=== PATIENT | female | born 1990 | race Caucasian/White ===

== ENCOUNTER → 2018-12-20 17:17 | Outpatient (CLI) | payer BC, SELFPAY | PROVIDERS: Visit Provider Nurse Practitioner Family | DX: N39.0 Urinary tract infection, site not specified (principal) | CPT/HCPCS: 87086 ==

== ENCOUNTER → 2018-12-21 09:38 | Outpatient (CLI) | payer BC, SELFPAY ==
[2018-12-21 11:51] LABS: Basophils % 0.2 % (0.1-2.0); Eosinophils # 0.2 K/mm3 (0.0-0.4); Eosinophils % 3.5 % (0.1-12.0); Hematocrit 38.4 % (37.0-47.0); Hemoglobin 11.9 g/dL (12.2-16.2); Lymphocytes # 1.5 K/mm3 (0.7-4.5); Lymphocytes % 31.1 % (10-50); Mean Corpuscular HGB Conc 31.1 g/dL (31.8-35.4); Mean Corpuscular Hemoglobin 27.1 pg (27.0-31.2); Mean Corpuscular Volume 87.2 fl (81-99); Mean Platelet Volume 8.1 fl (7.4-10.4); Monocytes # 0.2 K/mm3 (0.1-1.0); Monocytes % 5.1 % (1.7-9.3); Neutrophils # 2.9 K/mm3 (1.8-7.8); Neutrophils % 60.1 % (37.0-80.0); Platelet Count 270 K/mm3 (142-424); Red Blood Count 4.41 M/mm3 (4.20-5.40); Red Cell Distribution Width 15.2 % (11.5-17.5); White Blood Count 4.8 K/mm3 (4.8-10.8)
[2018-12-21 12:10] LABS: Alanine Aminotransferase 23 U/L (12-78); Albumin Level 3.8 gm/dL (3.4-5.0); Albumin/Globulin Ratio 1.2 (1.1-1.8); Alkaline Phosphatase 71 U/L (46-116); Anion Gap 14.3 mEq/L (5-15); Aspartate Amino Transferase 13 U/L (15-37); Bilirubin,Total 0.7 mg/dL (0.2-1.0); Blood Urea Nitrogen 16 mg/dL (7-18); Carbon Dioxide 29 mmol/L (21.0-32.0); Chloride 103 mmol/L (98-107); Chol/HDL Ratio 3.5 (1-3.5); Cholesterol 184 mg/dL (140-200); Creatinine,Serum 0.63 mg/dL (0.55-1.02); Estimated Glomerular Filt Rate 113 ml/min (>60); GFR (African American) 137 ML/MIN (>60); Globulin 3.2 gm/dl (1.3-3.2); Glucose 99 mg/dL (74-106); HDL Cholesterol 53 mg/dL (29-89); LDL Cholesterol 109 mg/dL (0-130); Potassium 4.3 mmoL/L (3.5-5.1); Sodium 142 mmol/L (136-145); T4 (Thyroxine) 7.6 ug/dl (4.7-13.3); Thyroid Stimulating Hormone 1.54 uIU/ml (0.358-3.740); Triglycerides 110 mg/dL (30-200); VLDL Cholesterol 22 mg/dL (0-40)
[2018-12-22 08:51] LABS: Hep A Ab, IgM Negative (Negative); Hepatitis B Core Antibody IgM Negative (Negative); Hepatitis B Surface Antigen Negative (Negative); Iron 40 ug/dL (27-159); Iron Saturation 10 % (15-55); UIBC 363 ug/dL (131-425)
[2018-12-22 17:11] LABS: Hepatitis C Antibody <0.1 s/co ratio (0.0-0.9); Vitamin D 25 Hydroxy 23.1 ng/mL (30.0-100.0)
== END ==
PROVIDERS: Visit Provider Nurse Practitioner Family
DX: R53.83 Other fatigue (principal); E04.9 Nontoxic goiter, unspecified; D64.9 Anemia, unspecified; E55.9 Vitamin D deficiency, unspecified; R74.0 Nonspecific elevation of levels of transaminase and lactic acid dehydrogenase [LDH]
CPT/HCPCS: 36415; 80053; 80061; 80074; 82652; 83540; 83550; 84436; 84443; 85025

== ENCOUNTER → 2018-12-29 10:12 | Outpatient (CLI) | payer BC, SELFPAY ==
--- NOTE | 2018-12-29 10:15 | US_ITS ---
US thyroid HISTORY: Enlarged thyroid gland, evaluate for nodules ITS.REASON: enlarged thy ORDERING PHYSICIAN: Melvin Alanis APRN PATIENT AGE: 28 years Comparison: None FINDINGS: Right lobe: 4.1 x 1.4 x 1.5 cm Left lobe: 4.2 x 1.3 x 1.8 cm Isthmus: Unremarkable There is bilateral homogeneous echogenicity of the thyroid gland. No nodules or other significant anomalies are evident. IMPRESSION: Thyroid gland upper limits of normal otherwise negative. No nodules apparent
== END ==
PROVIDERS: PCP Nurse Practitioner Family; Visit Provider Nurse Practitioner Family
DX: E04.9 Nontoxic goiter, unspecified (principal)
CPT/HCPCS: 76536

== ENCOUNTER → 2019-01-12 08:32 | Outpatient (CLI) | payer BC, SELFPAY | PROVIDERS: PCP Emergency Medicine; Visit Provider Nurse Practitioner Family | DX: G43.909 Migraine, unspecified, not intractable, without status migrainosus (principal); R01.1 Cardiac murmur, unspecified | CPT/HCPCS: 93306 ==

== ENCOUNTER → 2019-02-20 09:48 | Outpatient (CLI) | payer BC, SELFPAY ==
--- NOTE | 2019-02-20 09:52 | US_ITS ---
PROCEDURE: US TRANSVAGINAL CLINICAL INDICATION: us t/v-pelvic pain COMPARISON: No exams were available for comparison FINDINGS: UTERUS: Uterus is retroverted or retroflexed and measures 7.8 x 4.5 x 5.5 centimetres. Endometrial thickness is 7.8 millimeters. The uterus is otherwise empty. There is no cul-de-sac fluid. LEFT OVARY: 3.1 x 2.2 x 2.9 centimeters with normal RIGHT OVARY: Blood flow and multiple follicles. 3.3 x 1.8 x 2.5 centimeters with normal blood flow and multiple follicles. IMPRESSION: There are no adnexal lesions. Bilateral ovarian follicles. No acute process. Possible small nabothian cyst. Dictated by: Elian Rivera 02/20/2019 10:44 Electronically signed by Elian Rivera in [facility] 02/20/2019 10:44
== END ==
PROVIDERS: PCP Nurse Practitioner Family; Visit Provider Nurse Practitioner Obstetrics & Gynecology
DX: R10.2 Pelvic and perineal pain (principal)
CPT/HCPCS: 76830

== ENCOUNTER → 2019-02-26 09:50 | Outpatient (CLI) | payer BC, SELFPAY ==
[2019-02-26 11:24] LABS: Basophils % 0.4 % (0.1-2.0); Eosinophils # 0.2 K/mm3 (0.0-0.4); Eosinophils % 4.4 % (0.1-12.0); Hematocrit 39.2 % (37.0-47.0); Lymphocytes # 1.7 K/mm3 (0.7-4.5); Lymphocytes % 33.3 % (10-50); Mean Corpuscular HGB Conc 30.6 g/dL (31.8-35.4); Mean Corpuscular Hemoglobin 26.8 pg (27.0-31.2); Mean Corpuscular Volume 87.6 fl (81-99); Mean Platelet Volume 7.4 fl (7.4-10.4); Monocytes # 0.3 K/mm3 (0.1-1.0); Monocytes % 6.5 % (1.7-9.3); Neutrophils # 2.8 K/mm3 (1.8-7.8); Neutrophils % 55.3 % (37.0-80.0); Platelet Count 277 K/mm3 (142-424); Red Blood Count 4.48 M/mm3 (4.20-5.40); Red Cell Distribution Width 15.2 % (11.5-17.5); White Blood Count 5.1 K/mm3 (4.8-10.8)
[2019-02-26 11:54] LABS: HCG Qualitative, Serum Negative (Negative)
[2019-02-26 13:00] LABS: Alanine Aminotransferase 20 U/L (12-78); Albumin/Globulin Ratio 1.3 (1.1-1.8); Alkaline Phosphatase 67 U/L (46-116); Anion Gap 12.7 mEq/L (5-15); Aspartate Amino Transferase 18 U/L (15-37); Bilirubin,Total 0.8 mg/dL (0.2-1.0); Blood Urea Nitrogen 15 mg/dL (7-18); Calcium 9.2 mg/dL (8.5-10.1); Carbon Dioxide 29 mmol/L (21.0-32.0); Chloride 104 mmol/L (98-107); Estimated Glomerular Filt Rate 148 ml/min (>60); GFR (African American) 179 ML/MIN (>60); Globulin 3.1 gm/dl (1.3-3.2); Glucose 90 mg/dL (74-106); Potassium 4.7 mmoL/L (3.5-5.1); Sodium 141 mmol/L (136-145); Total Protein,Serum 7.1 gm/dL (6.4-8.2)
== END ==
PROVIDERS: Visit Provider Nurse Practitioner Obstetrics & Gynecology
DX: Z01.818 Encounter for other preprocedural examination (principal); R10.2 Pelvic and perineal pain; N92.1 Excessive and frequent menstruation with irregular cycle; N92.6 Irregular menstruation, unspecified
CPT/HCPCS: 36415; 80053; 84703; 85025

== ENCOUNTER → 2019-11-08 14:31 | Outpatient (CLI) | payer BC, SELFPAY ==
[2019-11-08 14:52] LABS: Basophils % 0.4 % (0.1-2.0); Eosinophils # 0.3 K/mm3 (0.0-0.4); Eosinophils % 6.9 % (0.1-12.0); Hematocrit 39.3 % (37.0-47.0); Hemoglobin 13.5 g/dL (12.2-16.2); Lymphocytes # 1.7 K/mm3 (0.7-4.5); Lymphocytes % 33.7 % (10-50); Mean Corpuscular HGB Conc 34.3 g/dL (31.8-35.4); Mean Corpuscular Hemoglobin 30.3 pg (27.0-31.2); Mean Corpuscular Volume 88.3 fl (81-99); Monocytes # 0.3 K/mm3 (0.1-1.0); Monocytes % 5.7 % (1.7-9.3); Neutrophils # 2.7 K/mm3 (1.8-7.8); Neutrophils % 53.4 % (37.0-80.0); Platelet Count 246 K/mm3 (142-424); Red Blood Count 4.45 M/mm3 (4.20-5.40); Red Cell Distribution Width 13.5 % (11.5-17.5)
[2019-11-08 16:08] LABS: Alanine Aminotransferase 21 U/L (12-78); Albumin/Globulin Ratio 1.8 (1.1-1.8); Alkaline Phosphatase 60 U/L (38-126); Anion Gap 13.8 mEq/L (5-15); Aspartate Amino Transferase 33 U/L (14-36); Bilirubin,Total 0.7 mg/dl (0.2-1.3); Blood Urea Nitrogen 12 mg/dl (7-17); Carbon Dioxide 29 mmol/L (22.0-30.0); Chloride 100 mmol/L (98-107); Chol/HDL Ratio 3.3 (1-3.5); Cholesterol 212 mg/dl (140-200); Estimated Glomerular Filt Rate 119 ml/min (>60); GFR (African American) 144 ML/MIN (>60); Globulin 2.8 g/dL (1.3-3.2); Glucose 119 mg/dl (74-100); HDL Cholesterol 64 mg/dl (40-60); Potassium 4.8 mmoL/L (3.5-5.1); Sodium 138 mmol/L (136-145); Total Protein,Serum 7.8 g/dl (6.3-8.2); Triglycerides 165 mg/dl (30-150); VLDL Cholesterol 33 mg/dL (0-40)
[2019-11-08 16:20] LABS: Direct LDL Cholesterol 130.41 mg/dL (100-129)
[2019-11-08 16:26] LABS: T4 (Thyroxine) 10.6 ug/dl (5.53-11.0)
[2019-11-08 16:40] LABS: Thyroid Stimulating Hormone 1.19 uIU/mL (0.465-4.68)
[2019-11-15 01:39] LABS: 1,25 Dihydroxy Vitamin D 34 pg/mL (.); 1,25-Dihydroxy, Vitamin D-2 <10 pg/mL (.); 1,25-Dihydroxy, Vitamin D-3 34 pg/mL (.)
== END ==
PROVIDERS: Visit Provider Nurse Practitioner Family
DX: Z00.00 Encounter for general adult medical examination without abnormal findings (principal); R51 Headache; G44.89 Other headache syndrome; E04.9 Nontoxic goiter, unspecified
CPT/HCPCS: 80053; 80061; 82652; 84436; 84443; 85025

== ENCOUNTER → 2019-11-09 08:07 | Outpatient (CLI) | payer BC, SELFPAY ==
[2019-11-09 10:53] LABS: Hemoglobin A1C 5.2 % (4.0-6.0)
[2019-11-10 12:25] LABS: C-Peptide 4.2 ng/mL (1.1-4.4)
== END ==
PROVIDERS: Visit Provider Nurse Practitioner Family
DX: R73.09 Other abnormal glucose (principal)
CPT/HCPCS: 36415; 83036; 84681

== ENCOUNTER → 2019-11-21 15:07 | Outpatient (CLI) | payer BC, SELFPAY ==
--- NOTE | 2019-11-21 15:14 | CT_ITS ---
PROCEDURE: CT HEAD/BRAIN WO CON CLINICAL INDICATION: headaces COMPARISON: No exams were available for comparison TECHNIQUE: Axial images obtained. All CT scans at the facility use one or more dose reduction, viz: automated exposure control, ma/kV adjustment per patient size (including targeted exams where dose is matched to indication, i.e. head), or iterative reconstruction technique. FINDINGS: No midline shift, mass effect, intracranial hemorrhage, hydrocephalus, or extra-axial fluid collection is evident. The calvarium has an unremarkable appearance. There is some mucosal thickening of the sphenoid sinus on the left posteriorly IMPRESSION: No acute intracranial finding Mild left sphenoid sinus disease Dictated by: Kev Perkins MD 11/21/2019 16:52 Electronically signed by Kev Perkins MD in [facility] 11/21/2019 16:52
== END ==
PROVIDERS: PCP Emergency Medicine; Visit Provider Nurse Practitioner Family
DX: R51 Headache (principal)
CPT/HCPCS: 70450

== ENCOUNTER → 2019-12-10 12:38 | Outpatient (CLI) | payer BC, SELFPAY ==
--- NOTE | 2019-12-10 12:38 | US_ITS ---
PROCEDURE: US THYROID CLINICAL INDICATION: enalrgement COMPARISON: THY US thyroid from 12/29/2018 FINDINGS: Right lobe: Right lobe is 4.1 x 1.2 x 1.7 cm with homogeneous echogenicity. A 2 mm cyst is present in the mid aspect of the right lobe Left lobe: 4.1 x 1.4 x 1.5 cm with homogeneous echogenicity Isthmus: Unremarkable Additional findings: IMPRESSION: Mildly enlarged thyroid gland with small cyst on the right. No suspicious nodules evident Dictated by: Kev Perkins MD 12/10/2019 14:02 Electronically signed by Kev Perkins MD in [facility] 12/10/2019 14:02
== END ==
PROVIDERS: PCP Emergency Medicine; Visit Provider Otolaryngology
DX: E01.0 Iodine-deficiency related diffuse (endemic) goiter (principal)
CPT/HCPCS: 76536

== ENCOUNTER → 2019-12-26 13:14 | Outpatient (CLI) | payer BC, SELFPAY | PROVIDERS: PCP Nurse Practitioner Family; Visit Provider Nurse Practitioner Family | DX: G47.00 Insomnia, unspecified (principal) | CPT/HCPCS: G0399 ==

== ENCOUNTER → 2020-02-04 16:05 | Outpatient (CLI) | payer BC, SELFPAY ==
--- NOTE | 2020-02-04 16:10 | CT_ITS ---
PROCEDURE: CT ABDOMEN PELVIS WO CON CLINICAL INDICATION: STONE PROTOCOL, L FLANK PAIN, NAUSEA COMPARISON: CT ABDPELWO CT abdomen pelvis wo con from 01/30/2018 TECHNIQUE: Axial images obtained with sagittal and coronal reformats. All CT scans at the facility use one or more dose reduction, viz: automated exposure control, ma/kV adjustment per patient size (including targeted exams where dose is matched to indication, i.e. head), or iterative reconstruction technique. FINDINGS: LOWER THORAX: Is a 15 mm noncalcified nodule in the right lower lobe. The borders of this nodule are more circumscribed on today's exam than when compared to 01/30/2018. ABDOMEN & PELVIS: The liver, gallbladder, spleen, adrenal glands, and pancreas have an unremarkable appearance. There is a 3 mm nonobstructing stone in the lower pole of the right kidney. A 2 mm stone is present in the upper pole of the right kidney. The left kidney has an unremarkable appearance. No renal or ureteral calculi are evident. There is a small amount of fluid in the cul-de-sac. Unremarkable appendix. No intestinal obstruction or free air. Urinary bladder wall slightly thickened. There is a circular area of increased density within the peritoneal fat lateral to the junction of the descending and sigmoid colon in the left lower quadrant consistent with an area of epiploic appendagitis. There is no evidence diverticulitis. There is a small umbilical hernia containing fat. No acute bony findings are evident. IMPRESSION: 1. Ring-like area of increased density at 1.3 cm in diameter in the peritoneal fat in the left lower quadrant consistent with epiploic appendagitis 2. Right nephrolithiasis. 3. No obstructing ureteral calculi evident 4. 15 mm noncalcified nodule of the right lower lobe. The nodule is better circumscribed but not significantly changed in size compared to 01/30/2018. Continued follow-up suggested to confirm stability. Dictated by: Kev Perkins MD 02/04/2020 16:59 Kev Perkins MD in [facility] 02/04/2020 16:59
== END ==
PROVIDERS: PCP Internal Medicine; Visit Provider Internal Medicine
DX: N20.0 Calculus of kidney (principal); R11.0 Nausea; R10.12 Left upper quadrant pain
CPT/HCPCS: 74176

== ENCOUNTER → 2020-02-21 10:13 | Outpatient (CLI) | payer BC, SELFPAY ==
--- NOTE | 2020-02-21 10:17 | CT_ITS ---
Procedure: CT ABDOMEN PELVIS W CON Referring Doctor: Geo Leiva Patient Age:29Y CLINICAL INDICATION: Abdominal pain. Follow-up EIPLOIC APPENDAGITIS 3 weeks. Continued LLQ pain 2 COMPARISON: CT ABDPELWO CT abdomen pelvis wo con from 01/30/[address] ABDOMEN PELVIS WO CON from 02/04/2020 TECHNIQUE: 75 cc Isovue 350 IV contrast utilized Oral enteric contrast also used of 4 today's scan Helical axial images obtained with sagittal and coronal reformats. All CT scans at the facility use one or more dose reduction, viz: automated exposure control, ma/kV adjustment per patient size (including targeted exams where dose is matched to indication, i.e. head), or iterative reconstruction technique. FINDINGS: Lower thorax: 16 mm noncalcified lung nodule at the posterior right lung base. Again noted. I see that this nodule with initially seen and January 2018 now with better defined appearance supporting longstanding-I would suggest a follow-up CXR in two-view 3--4 months to additionally confirm stability (and the presuming the patient has no other significant underlying pathology) ABDOMEN: Liver: No masses or biliary dilatation. Gallbladder: Nondistended. No radio opaque stones. Pancreas: No masses or peripancreatic fluid collections. Spleen: Normal-2upper normal size Adrenals: unremarkable Kidneys/. No urinary tract obstruction. A small 2.5 mm nonobstructive calculus towards the lower pole of right kidney coronal slice 43. Stable ureters unremarkable no calculi nor obstruction. Urinary bladder satisfactory. PELVIS: No free fluid pelvis Retroverted uterus appears normal size but. Ovaries appear normal size with of what appear to be numerous small follicles throughout each. The left ovary is larger measuring to 3.6 cm maximally Bladder: Nondistended. No obvious stones or masses. Appendix: Unremarkable. No distention or periappendiceal phlegmonous change. GI tract The area of a suspect epiploic appendagitis is again noted. With less inflammation surrounding this epiploic focus. The adjacent sigmoid colon appears normal. There is no wall thickening and large or small bowel. There is normal progression of contrast through the small bowel into the colon. Normal appearing terminal ileum, small bowel, normal appendix. . No bowel dilatation Peritoneum: No abnormal fluid collections.... No free air. Lymph nodes: No significant enlarged nodes. Only some tiny scattered small nodes in the mesentery and towards RLQ.-Unimpressive and unchanged but noted Vasculature: No evidence of abdominal aortic aneurysm. No retroperitoneal hemorrhage evident. Bones: No acute fracture IMPRESSION: 1. Regression of the inflammation associated with epiploic appendagitis left lower quadrant. There is still some scant inflammation here but has significantly improved since 02/04/2020. No associated bowel findings otherwise 2.. Again note the 16 mm lung lesion right lung base. Apparent benign feature initially seen in 2018. However would suggest follow-up CXR in-3-4 months.. 3.. Again note 2.5 mm nonobstructive calculus lower pole calyx right kidney . A ovaries normal in size with numerous follicles bilaterally . Dictated by: Duke Medina MD 02/21/2020 12:13 Duke Medina MD in [facility] 02/21/2020 12:13
== END ==
PROVIDERS: PCP Internal Medicine; Visit Provider Surgery
DX: K63.89 Other specified diseases of intestine (principal)
CPT/HCPCS: 74177; Q9967

== ENCOUNTER 2020-03-13 14:49 | Emergency (ER) | payer BC, SELFPAY ==
[2020-03-13 14:50] VITALS: BP 163/85; PULSE 96; RESP 16; TEMP 36.8; O2SAT 98; BMI 27.4
--- NOTE | 2020-03-13 15:20 | US_ITS ---
PROCEDURE: US TRANSVAGINAL CLINICAL INDICATION: pain, bleeding COMPARISON: US US TRANSVAGINAL from 02/20/2019 FINDINGS: The uterus is retroverted with heterogeneous echogenicity of the uterine fundal area. Endometrium is upper normal at 1 cm. There is a small cystic area within the endometrial lining measuring 6 mm. The left ovary is 3 x 2 cm. Blood flow is present. The right ovary is 4 x 2 cm. There is a partially collapsed cyst within the right ovary. Blood flow is present. No cul-de-sac fluid is evident. IMPRESSION: Retroverted uterus with coarse echogenicity in the fundal area possibly related to endometrial adenomyosis.. This may be confirmed with MRI if clinically desired. Nonspecific small cystic area within the endometrium Dictated by: Kev Perkins MD 03/14/2020 07:00 Kev Perkins MD in [facility] 03/14/2020 07:00
[2020-03-13 15:40] LABS: Microscopic, Urine URINE MICROSCOPIC (MICROSCOPIC)
[2020-03-13 15:42] LABS: Appearance,Urine CLEAR (Clear); Bilirubin,Urine Negative (Negative); Blood, Urine Negative (Negative); Color,Urine YELLOW (Yellow); Glucose,Urine (UA) Negative (Negative); Ketones,Urine Negative (Negative); Leukocyte Esterase,Urine Negative (Negative); Nitrate,Urine Negative (Negative); Protein,Urine Negative (Negative); Urobilinogen,Urine 0.2 EU/dl (0.2)
[2020-03-13 15:45] LABS: Urine Pregnancy, HCG Qual. Negative (Negative)
--- NOTE | 2020-03-13 15:46 | HMH.EDUROGF ---
ED Disposition Clinical Impression: Dysfunctional uterine bleeding Disposition: Home, Self-Care Condition on Discharge: Good Instructions: DI for Vaginal Bleeding Referrals: Melvin Alanis APRN [Primary Care Provider] - - Critical Care Critical Care Time: No Attestation: On 03/13/20, the high probability of a clinically significant, sudden or life threatening deterioration of the following system(s) required my full and direct attention, intervention and personal management. The time I documented below is in addition to time spent performing reported procedures but includes the following listed in this critical care notation. Medical Decision Making - Medical Records Medical records reviewed: Yes: I reviewed the patient's medical records. - Benito Inquiry Pt receiving controlled substance: No Vital Signs: 03/13/20 14:50 03/13/20 16:18 Temperature 98.3 F Temperature Source Oral Pulse Rate [Left Radial] 96 H 81 Respiratory Rate 16 Blood Pressure [Right Arm] 163/85 H 140/88 Blood Pressure Mean [Right Arm] 111 105 Blood Pressure Source [Right Arm] Automatic Cuff Blood Pressure Position [Right Arm] Sitting Sitting 02 Sat by Pulse Oximetry 98 99 Oxygen Delivery Method Room Air Room Air - Lab Data Lab Results 03/13/20 15:10: Urine Color Yellow, Urine Appearance Clear, Urine pH 7.0, Ur Specific [place] 1.020, Urine Protein Negative, Urine Glucose (UA) Negative, Urine Ketones Negative, Urine Blood Negative, Urine Nitrate Negative, Urine Bilirubin Negative, Urine Urobilinogen 0.2, Ur Leukocyte Esterase Negative, Urine RBC Occasional, Urine WBC Occasional, Ur Squamous Epith Cells Occasional, Urine Bacteria None, Urine Mucus Trace 03/13/20 15:10: Urine HCG, Qual Negative 03/13/20 15:48: WBC 8.5, RBC 4.54, Hgb 13.1, Hct 41.1, MCV 90.6, MCH 28.8, MCHC 31.8, RDW 14.0, Plt Count 274, MPV 7.5, Neut % (Auto) 70.8, Lymph % (Auto) 20.9, Cameron % (Auto) 4.7, Eos % (Auto) 3.0, Baso % (Auto) 0.6, Neut # (Auto) 6.0, Lymph # (Auto) 1.8, Cameron # (Auto) 0.4, Eos # (Auto) 0.3, Baso # (Auto) 0.1 03/13/20 15:48: Sodium 138, Potassium 4.1, Chloride 101, Carbon Dioxide 29, Anion Gap 12.1, BUN 9, Creatinine 0.60, Estimated Creat Clear 170, Estimated GFR 119, Est GFR ( Amer) 144, Glucose 106 H, Calcium 9.7, Total Bilirubin 0.5, AST 26, ALT 19, Alkaline Phosphatase 61, Total Protein 7.6, Albumin 4.7, Globulin 2.9, Albumin/Globulin Ratio 1.6, Lipase 70 Result diagrams: 03/13/20 15:48 03/13/20 15:48 Orders (Tests/Meds): ORDERS Category Date Time Status US transvaginal Stat Exams 03/13/20 15:20 Taken - US Data US Images: Pelvis ED US Reviewed: Yes: I have reviewed the patient's US results, I have viewed radiologist's interpretation Findings Narrative: Ovarian cyst, no torsion. Cyst and endometrium. Thickened endometrium. - Reevaluation(s) Time: 17:04 Reevaluation #1: On reevaluation, patient is feeling much better. She has had no further bleeding. No syncope. Hemodynamically stable. Hemoglobin is stable. I do believe the patient's bleeding is likely secondary to thickened endometrium. 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 Given strict return precautions. Verbalized understanding. Medical Decision Narrative: 29-year-old female presented to the emergency department with vaginal bleeding. Do believe her symptoms are consistent with endometriosis. However ultrasound will be obtained to evaluate for torsion versus other ovarian pathology. Patient has no neurologic deficits. I do believe that her paresthesias in the arm could be secondary to her blood loss. Work-up will be initiated. Female Urogenital HPI - General Chief complaint: Vaginal Bleeding Stated complaint: bleeding, rt arm numbness, dizzy Time Seen by Provider: 03/13/20 14:55 Mode of Arrival: Ambulatory Limitations: No Limitations Description of Symptoms (Recalled from ER Triage Doc. by RN): TO ED PER PVT CAR PT STATES SHE STOOD
[2020-03-13 15:50] LABS: Mucus,Urine Trace /lpf; RBC,Urine Occasional #/hpf (0-3); Squamous Epithelial Cell,Urine Occasional #/hpf (0-5); WBC,Urine Occasional #/hpf (0-3)
[2020-03-13 15:59] LABS: Basophils # 0.1 K/mm3 (0-0.2); Basophils % 0.6 % (0.1-2.0); Eosinophils # 0.3 K/mm3 (0.0-0.4); Hematocrit 41.1 % (37.0-47.0); Hemoglobin 13.1 g/dL (12.2-16.2); Lymphocytes # 1.8 K/mm3 (0.7-4.5); Lymphocytes % 20.9 % (10-50); Mean Corpuscular HGB Conc 31.8 g/dL (31.8-35.4); Mean Corpuscular Hemoglobin 28.8 pg (27.0-31.2); Mean Corpuscular Volume 90.6 fl (81-99); Mean Platelet Volume 7.5 fl (7.4-10.4); Monocytes # 0.4 K/mm3 (0.1-1.0); Monocytes % 4.7 % (1.7-9.3); Neutrophils % 70.8 % (37.0-80.0); Platelet Count 274 K/mm3 (142-424); Red Blood Count 4.54 M/mm3 (4.20-5.40); White Blood Count 8.5 K/mm3 (4.8-10.8)
[2020-03-13 16:00] LABS: Chloride 101 mmol/L (98-107); Potassium 4.1 mmoL/L (3.5-5.1); Sodium 138 mmol/L (136-145)
[2020-03-13 16:03] LABS: Alanine Aminotransferase 19 U/L (12-78); Albumin Level 4.7 g/dl (3.5-5.0); Albumin/Globulin Ratio 1.6 (1.1-1.8); Alkaline Phosphatase 61 U/L (38-126); Anion Gap 12.1 mEq/L (5-15); Aspartate Amino Transferase 26 U/L (14-36); Bilirubin,Total 0.5 mg/dl (0.2-1.3); Blood Urea Nitrogen 9 mg/dl (7-17); Calcium 9.7 mg/dl (8.4-10.2); Carbon Dioxide 29 mmol/L (22.0-30.0); Creatinine Clearance Estimated 170 mL/min (50-200); Estimated Glomerular Filt Rate 119 ml/min (>60); GFR (African American) 144 ML/MIN (>60); Globulin 2.9 g/dL (1.3-3.2); Glucose 106 mg/dl (74-100); Lipase 70 U/L (23-300); Total Protein,Serum 7.6 g/dl (6.3-8.2)
[2020-03-13 16:18] VITALS: BP 140/88; PULSE 81; O2SAT 99
[2020-03-13 17:44] VITALS: BP 120/70; PULSE 81; RESP 17; TEMP 36.6; O2SAT 96
== END 2020-03-13 17:45 | disposition home or self-care (01) ==
PROVIDERS: Emergency Provider Emergency Medicine; PCP Nurse Practitioner Family
DX: N93.8 Other specified abnormal uterine and vaginal bleeding (principal); N83.201 Unspecified ovarian cyst, right side; G43.709 Chronic migraine without aura, not intractable, without status migrainosus; F33.1 Major depressive disorder, recurrent, moderate
CPT/HCPCS: 76830; 80053; 81001; 81025; 83690; 85025; 99283

== ENCOUNTER → 2020-03-24 09:14 | Outpatient (CLI) | payer BC, SELFPAY ==
[2020-03-24 09:46] LABS: Basophils % 0.3 % (0.1-2.0); Eosinophils # 0.2 K/mm3 (0.0-0.4); Eosinophils % 3.5 % (0.1-12.0); Hematocrit 39.6 % (37.0-47.0); Hemoglobin 13.3 g/dL (12.2-16.2); Lymphocytes # 1.7 K/mm3 (0.7-4.5); Lymphocytes % 29.9 % (10-50); Mean Corpuscular HGB Conc 33.6 g/dL (31.8-35.4); Mean Corpuscular Hemoglobin 29.9 pg (27.0-31.2); Mean Platelet Volume 7.4 fl (7.4-10.4); Monocytes # 0.3 K/mm3 (0.1-1.0); Monocytes % 5.2 % (1.7-9.3); Neutrophils # 3.5 K/mm3 (1.8-7.8); Neutrophils % 61.1 % (37.0-80.0); Platelet Count 277 K/mm3 (142-424); Red Blood Count 4.45 M/mm3 (4.20-5.40); Red Cell Distribution Width 14.2 % (11.5-17.5); White Blood Count 5.8 K/mm3 (4.8-10.8)
[2020-03-24 10:00] LABS: Chloride 103 mmol/L (98-107)
[2020-03-24 10:01] LABS: Potassium 4.2 mmoL/L (3.5-5.1); Sodium 139 mmol/L (136-145)
[2020-03-24 10:04] LABS: Anion Gap 12.2 mEq/L (5-15); Blood Urea Nitrogen 12 mg/dl (7-17); Calcium 9.8 mg/dl (8.4-10.2); Carbon Dioxide 28 mmol/L (22.0-30.0); Estimated Glomerular Filt Rate 119 ml/min (>60); GFR (African American) 144 ML/MIN (>60); Glucose 103 mg/dl (74-100)
[2020-03-24 10:09] LABS: HCG Qualitative, Serum Negative (Negative)
[2020-03-24 10:35] LABS: Coronavirus 19 IgG Antibody Negative (Negative); Coronavirus 19 IgM Antibody Negative (Negative)
== END ==
PROVIDERS: Visit Provider Nurse Practitioner Obstetrics & Gynecology
DX: Z01.818 Encounter for other preprocedural examination (principal); N93.8 Other specified abnormal uterine and vaginal bleeding
CPT/HCPCS: 36415; 80048; 84703; 85025; 86328

== ENCOUNTER 2020-03-26 06:08 | Day surgery (SDC) | payer BC, SELFPAY ==
[2020-03-24 08:15] VITALS: BMI 25.8
[2020-03-26] VITALS (13 sets, daily range): BP systolic 115–154; BP diastolic 67–86; PULSE 62–85; RESP 16–19; TEMP 36.2–36.9; O2SAT 94–100
--- NOTE | 2020-03-26 07:02 | P.PN_ITS ---
[facility] Anesthesia Checklist - Patient Identification Patient Identification: Arm Band, Verbal (Name & ) - Structural Data Admitted From: Home Planned Operative Procedure/s: Diagnostic laparoscopy, resection of endometriosis Consent for Planned Operative Procedure(s) Verified: Yes Verified Documents: Surgical Consent, History and Physical - NPO Status Verified Time NPO: 21:00 - Chart Verification Results Verified: CBC, BMP, UA, HCG - Additional verifications Patient : No Anesthesia Reactions: No Hx Blood Transfusions: No Blood Transfusion Reaction: No - Airway Assessment C-Spine Mobility Assessed: Yes (MP 2, TMD 3, full neck ROM) TMJ Mobility Assessed: Yes Dentition: Good Dentition - Neurological Assessment Level of Consciousness: Awake, Alert, Appropriate, Follows Commands Hx Seizures: No Numbness or tingling in extremities: No - Anesthesia Plan Anesthesia Risk discussed: Yes Anesthesia Plan: Verified ASA Class: II Anesthesia Type: General [facility] History I have reviewed the patient's past medical history: Yes Medical History: Reports:: Heart Murmur, Migraine Denies:: Anxiety, Cancer, Diabetes Mellitus Type 1, Diabetes Mellitus Type 2, Hyperlipidemia, Hypertension, Internal Pacemaker, MRSA, Seizures *Have you ever received a pneumonia vaccine?: No *Have you received a flu vaccine this season?: No Other Medical History: Reports: Thyroid Disease. Denies: Blood Transfusion Reaction Anesthesia experience/problems:: No prior complications Other Surgeries: Yes: Tubal Ligation, Other. No: Pacemaker Amputation: No Fractures: Yes (wrist) - *Social History Last grade of school completed: Some college Smoking Status: Never smoker Alcohol Intake: never Substance Use Type: denies use *Occupational Status:: student Housing: house Household Members: spouse *Travel in the last 8 weeks: None - Psychiatric History Pschychiatric History:: Reports:: Depression Denies:: Anxiety Family Hx:: Kidney Disease, Coronary Artery Disease [employer] history: Tubal Ligation
--- NOTE | 2020-03-26 08:28 | HMH.OPNOTE ---
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 She had severe left lower quadrant pain. She had a couple of CTs that showed what appeared to be appendagitis of the epiploica of the descending colon. Otherwise the CT was normal. Since she had persistent left lower quadrant pain we elected perform a diagnostic laparoscopy. Operative findings:: She had an infarcted epiploica on the descending colon just below the level of the umbilicus on the left side. She had what appeared to be small powder cano of endometriosis on the distal end of the mesosalpinx. She also had what appeared to be endometriosis along the middle aspect of the mesosalpinx on the left side as well as small powder cano at the uterine cornua on the left. There was a large Masters Kev defect above the uterosacral ligament in the deep pelvis on the right side. There were a couple of smaller lesions with a small cystic at the end of adhesions on the right side. One was attached to the posterior uterus with a thin adhesion and a second 1 was attached to the right ovary. These were removed. The rest of the pelvis appeared normal. The upper abdomen appeared normal. We observed the appendix and it appeared normal as well. Both ovaries appeared normal. There is no evidence of endometriosis on the ovaries or in the ovarian fossae bilaterally. Operative note:: She was taken the operating room where the general anesthesia was found be adequate. She was prepped and draped in normal sterile fashion in the semilithotomy position. An acorn retractor was placed within the cervical canal and held in place with a tenaculum. I then changed gloves and injected 10 cc of 0.25% ropivacaine around the umbilicus. I made a small incision within the umbilicus and inserted a Veress needle into the abdominal cavity. The abdominal cavity was then insufflated with carbon dioxide gas to a pressure of 20 mmHg. I then inserted a 5 mm trocar superior to the pubic hairline under direct vision after injecting through and through and making a small incision. The findings were as previously dictated. I then injected through and through in the left lower quadrant lateral to the inferior epigastric arteries and inserted a 5 mm trocar here under direct vision. Using harmonic scalpel I was able to resect the areas at the distal mesosalpinx, from the medial aspect of the mesosalpinx and up at the cornua of the uterus on the left side. I then remove the small adhesions on the posterior uterus and posterior right ovary. These were small long adhesions and at the distal end of each adhesion was a small 2 to 3 mm cystic structure. These were sent to pathology. I then further inspected the pelvis. I then looked up along the left side of the descending colon and I could see a small bleb of tissue that appeared to be erythematous and firm consistent with an infarcted epiploica. I was able to just bluntly dissect this off from the colon. I grasped this and then placed it in the deep pelvis. I then removed the 5 mm trocar at the umbilicus and placed an 11 mm trocar under direct vision. I placed the camera in the suprapubic port and an Endo Catch bag through the 11 mm port. I then placed a small epiploica within the Endo Catch bag and removed this through the 11 mm port. I then further inspected the pelvis and was found to be completely dry. Along the descending colon there was a small amount of bleeding and ooze from the infarcted epiploica bed. I just placed a large piece of Surgicel o
--- NOTE | 2020-03-26 08:35 | HMH.ANESI ---
[facility] Anesthesia Record Part I Intake, IV Amount: 900 Estimated blood loss (mL): 25 Urine output (mL): 0 Blood Pressure: 126/77 SaO2: 98 Pulse Rate: 62 Respiratory Rate: 16 Temperature: 97.6 F Patient is:: Drowsy, Stable Stable to PACU at:: 08:30
--- NOTE | 2020-03-26 10:10 | P.PN_ITS ---
[facility] Anesthesia Record Part II Discharge Time: 09:08 Destination: Surgical Day Care (OP Surgery) PACU nurse assessment reviewed?: Yes Patient Condition:: Good Anesthesia Complications:: None Swallowing reflex intact?: Yes Cyanosis?: No Blood Pressure: 120/78 Pulse Rate: 68 Temperature: 97.7 F Mental Status: Alert & Oriented Pain level:: 4 Nausea and/or vomitting:: None Intake, IV Amount: 0
== END 2020-03-26 10:01 | disposition home or self-care (01) ==
LOC: OR 06:09
PROVIDERS: PCP Internal Medicine; Visit Provider Nurse Practitioner Obstetrics & Gynecology
PROC: (CPT 49320; principal; 2020-03-26 07:30)
DX: K63.89 Other specified diseases of intestine (principal); N80.0 Endometriosis of uterus; N80.8 Other endometriosis; N73.6 Female pelvic peritoneal adhesions (postinfective); N83.8 Other noninflammatory disorders of ovary, fallopian tube and broad ligament; G43.909 Migraine, unspecified, not intractable, without status migrainosus; R01.1 Cardiac murmur, unspecified; E07.9 Disorder of thyroid, unspecified; F32.9 Major depressive disorder, single episode, unspecified; Z88.6 Allergy status to analgesic agent; Z79.899 Other long term (current) drug therapy
CPT/HCPCS: 58662; 49321; 96374; J2405; J2710

== ENCOUNTER 2020-08-18 06:28 | Emergency (ER) | payer MEDICAID, SELFPAY ==
[2020-08-18] VITALS (8 sets, daily range): BP systolic 104–135; BP diastolic 47–78; PULSE 57–78; RESP 15–16; TEMP 36.6; O2SAT 92–100; BMI 26.4
--- NOTE | 2020-08-18 06:59 | CT_ITS ---
PROCEDURE: CT ABDOMEN PELVIS W CON CLINICAL INDICATION: right flank/right side abd pain COMPARISON: CT ABDPELWO CT abdomen pelvis wo con from 01/30/[address] ABDOMEN PELVIS WO CON from 02/04/2020 TECHNIQUE: IV Contrast: February 21, 2020. Oral Contrast None Axial images obtained with sagittal and coronal reformats. All CT scans at the facility use one or more dose reduction, viz: automated exposure control, ma/kV adjustment per patient size (including targeted exams where dose is matched to indication, i.e. head), or iterative reconstruction technique. FINDINGS: LOWER THORAX: There is a focal nodular appearing density noted in the right lower lobe measuring 1.6 x 1.5 centimeters, noted on prior studies dating back to January 30, 2018. No significant interval change compared to prior study. No other focal lung lesions. ABDOMEN & PELVIS: There is moderate right-sided hydronephrosis and hydroureter through its entire extent. There is a right vesicoureteric junction calculus measuring 6 millimeters. There is minor right periuterine trach and perinephric stranding noted. Nonobstructing right renal calculus at the inferior pole measuring 3 millimeters. The left kidney and left ureter are unremarkable. The liver, spleen, adrenal glands, and pancreas are unremarkable. No intra or extrahepatic biliary dilation. The visualized abdominal aorta and its branches are unremarkable. Pelvic structures are unremarkable. The gallbladder is normal. No intra or extrahepatic biliary dilation. Visualized large and small bowel loops demonstrate no focal wall thickening, obstruction or adjacent inflammatory changes. No free fluid or free intraperitoneal air. Visualized osseous structures are unremarkable. IMPRESSION: 6 millimeter right vesicoureteric junction calculus causes mild to moderate proximal hydroureter and hydronephrosis. Nonobstructing 3 millimeter calculus in the right kidney. Focal nodule in the right lower lobe measuring 1.6 x 1.5 centimeters, noted on the prior studies dating back to January 30, 2018. Follow-up as clinically indicated. Dictated by: Trice Daugherty 08/18/2020 09:34 Trice Daugherty in [facility] 08/18/2020 09:34
[2020-08-18 07:08] LABS: Microscopic, Urine URINE MICROSCOPIC (MICROSCOPIC)
[2020-08-18 07:13] LABS: Basophils % 0.5 % (0.1-2.0); Eosinophils # 0.2 K/mm3 (0.0-0.4); Eosinophils % 2.9 % (0.1-12.0); Hematocrit 38.5 % (37.0-47.0); Hemoglobin 12.9 g/dL (12.2-16.2); Lymphocytes # 1.6 K/mm3 (0.7-4.5); Mean Corpuscular HGB Conc 33.5 g/dL (31.8-35.4); Mean Corpuscular Hemoglobin 29.5 pg (27.0-31.2); Mean Platelet Volume 7.8 fl (7.4-10.4); Monocytes # 0.3 K/mm3 (0.1-1.0); Monocytes % 5.4 % (1.7-9.3); Neutrophils # 4.1 K/mm3 (1.8-7.8); Neutrophils % 65.2 % (37.0-80.0); Platelet Count 249 K/mm3 (142-424); Red Blood Count 4.37 M/mm3 (4.20-5.40); Red Cell Distribution Width 13.9 % (11.5-17.5); White Blood Count 6.3 K/mm3 (4.8-10.8)
[2020-08-18 07:13] LABS: Appearance,Urine CLEAR (Clear); Bilirubin,Urine Negative (Negative); Blood, Urine 3+ (Negative); Color,Urine YELLOW (Yellow); Glucose,Urine (UA) Negative (Negative); Ketones,Urine Negative (Negative); Leukocyte Esterase,Urine Negative (Negative); Nitrate,Urine Negative (Negative); Protein,Urine Negative (Negative); Specific Gravity, Urine >= 1.030 (1.005-1.030); Urobilinogen,Urine 0.2 EU/dl (0.2)
[2020-08-18 07:24] LABS: RBC,Urine 20-50 #/hpf (0-3)
[2020-08-18 07:25] LABS: Alanine Aminotransferase 23 U/L (12-78); Albumin Level 4.7 g/dl (3.5-5.0); Alkaline Phosphatase 61 U/L (38-126); Amylase 76 U/L (30-110); Anion Gap 9.8 mEq/L (5-15); Aspartate Amino Transferase 34 U/L (14-36); Bilirubin,Indirect 0.7 mg/dL (0.0-0.9); Bilirubin,Total 0.7 mg/dl (0.2-1.3); Bilirubin,Unconjugated 0.7 mg/dL (0.0-1.1); Blood Urea Nitrogen 11 mg/dl (7-17); Calcium 9.5 mg/dl (8.4-10.2); Carbon Dioxide 28 mmol/L (22.0-30.0); Chloride 106 mmol/L (98-107); Creatinine Clearance Estimated 153 mL/min (50-200); Estimated Glomerular Filt Rate 118 ml/min (>60); GFR (African American) 143 ML/MIN (>60); Glucose 110 mg/dl (74-100); Lipase 78 U/L (23-300); Potassium 3.8 mmoL/L (3.5-5.1); Sodium 140 mmol/L (136-145); Total Protein,Serum 7.5 g/dl (6.3-8.2)
--- NOTE | 2020-08-18 07:57 | HMH.EDGENADL ---
ED Disposition Clinical Impression: Kidney stone Disposition: Home, Self-Care Condition on Discharge: Good Instructions: DI for Acute Abdominal Pain Additional Instructions: You look to have a 6 mm right sided kidney stone where the ureter drains into the bladder. Take Flomax as prescribed, use urine strainer, continue ibuprofen for pain always with food, drink plenty of clear fluids, and use zofran as needed for nausea. Follow up with urology team for further management within the next several days. Immediately return to our emergency department if any intractable nausea/vomiting, decreased p.o. intake, generalized malaise, increased pain, fever/chills, or other systemic signs of illness. Prescriptions: Tamsulosin HCl [Flomax 0.4mg capsule] 0.4 mg PO HS 7 Days #7 cap Prescription Printed Ondansetron [Zofran 4mg ODT] 4 mg PO TIDP PRN #12 tab PRN Reason: Nausea And Vomiting Prescription Printed Referrals: Bravo Ayala [Primary Care Provider] - - Critical Care Critical Care Time: No Attestation: On 08/18/20, the high probability of a clinically significant, sudden or life threatening deterioration of the following system(s) required my full and direct attention, intervention and personal management. The time I documented below is in addition to time spent performing reported procedures but includes the following listed in this critical care notation. Medical Decision Making - Medical Records Medical records reviewed: Yes: I reviewed the patient's medical records. - Benito Inquiry Pt receiving controlled substance: No Vital Signs: 08/18/20 06:52 08/18/20 07:44 08/18/20 08:00 Temperature 97.8 F Temperature Source Oral Pulse Rate 66 63 Pulse Rate [Right Brachial] 73 Respiratory Rate 15 Blood Pressure 124/47 L 104/68 L Blood Pressure [Right Arm] 123/75 Blood Pressure Mean 69 80 Blood Pressure Mean [Right Arm] 91 Blood Pressure Source [Right Arm] Automatic Cuff Blood Pressure Position [Right Arm] Sitting 02 Sat by Pulse Oximetry 98 100 100 Oxygen Delivery Method Room Air - Lab Data Lab Results 08/18/20 06:55: Urine Color Yellow, Urine Appearance Clear, Urine pH 6.0, Ur Specific [place] >= 1.030, Urine Protein Negative, Urine Glucose (UA) Negative, Urine Ketones Negative, Urine Blood 3+, Urine Nitrate Negative, Urine Bilirubin Negative, Urine Urobilinogen 0.2, Ur Leukocyte Esterase Negative, Urine RBC 20-50, Urine WBC 3-5, Ur Squamous Epith Cells 3-5, Urine Bacteria None 08/18/20 07:00: WBC 6.3, RBC 4.37, Hgb 12.9, Hct 38.5, MCV 88.0, MCH 29.5, MCHC 33.5, RDW 13.9, Plt Count 249, MPV 7.8, Neut % (Auto) 65.2, Lymph % (Auto) 26.0, [place] % (Auto) 5.4, Eos % (Auto) 2.9, Baso % (Auto) 0.5, Neut # (Auto) 4.1, Lymph # (Auto) 1.6, [place] # (Auto) 0.3, Eos # (Auto) 0.2, Baso # (Auto) 0.0 08/18/20 07:00: Sodium 140, Potassium 3.8, Chloride 106, Carbon Dioxide 28, Anion Gap 9.8, BUN 11, Creatinine 0.60, Estimated Creat Clear 153, Estimated GFR 118, Est GFR ( Amer) 143, Glucose 110 H, Calcium 9.5, Total Bilirubin 0.7, Direct Bilirubin 0.0, Conjugated Bilirubin 0.0, Indirect Bilirubin 0.7, Unconjugated Bilirubin 0.7, AST 34, ALT 23, Alkaline Phosphatase 61, Total Protein 7.5, Albumin 4.7, Amylase 76, Lipase 78 Result diagrams: 08/18/20 07:00 08/18/20 07:00 Orders (Tests/Meds): ED MEDICATIONS Discontinued Medications Generic Name Dose Route Start Last Admin Trade Name Freq PRN Reason Stop Dose Admin Sodium Chloride 1,000 mls @ 999 mls/hr 08/18/20 07:15 08/18/20 07:08 Sod Chlor 0.9% 1000ml Bag IV 08/18/20 08:15 999 mls/hr .Q1H1M MICHAEL Administration Iopamidol 75 ml 08/18/20 09:06 08/18/20 09:07 Iopamidol-370 (76%);100ml Bottle IV 08/18/20 09:07 75 ml ONCE ONE Administration Ketorolac Tromethamine 30 mg 08/18/20 07:07 08/18/20 07:08 Ketorolac 30mg/Ml Vial IV 08/18/20 07:08 30 mg ONCE ONE Administration Ondansetron HCl 4 mg 08/18/20 07:07
--- NOTE | 2020-08-18 10:01 | PC.NURSE ---
dr lisa cunningham
--- NOTE | 2020-08-18 10:58 | PC.NURSE ---
dr. kelly returned call, speaking with dr lakhani
== END 2020-08-18 11:00 | disposition home or self-care (01) ==
PROVIDERS: Emergency Provider Emergency Medicine; PCP Internal Medicine
DX: N13.2 Hydronephrosis with renal and ureteral calculous obstruction (principal); Z87.442 Personal history of urinary calculi; R01.1 Cardiac murmur, unspecified; Z88.5 Allergy status to narcotic agent
CPT/HCPCS: 74177; 80048; 80076; 81001; 82150; 83690; 85025; 96365; 96367; 96375; 99283; J2405; Q9967

== ENCOUNTER 2021-04-21 09:13 | Emergency (ER) | payer MEDICAID, SELFPAY ==
[2021-04-21 09:49] VITALS: BP 143/87; PULSE 105; RESP 19; TEMP 36.9; O2SAT 98; BMI 28.4
[2021-04-21 09:54] VITALS: BP 143/87; PULSE 105; RESP 19; TEMP 36.9
[2021-04-21 10:00] LABS: UTC Strep Screen (Rapid) Positive (Negative)
--- NOTE | 2021-04-21 10:12 | HMH.EDUTC ---
[facility] Disposition Clinical Impression: Strep throat Disposition: Home, Self-Care Condition on Discharge: Good Instructions: DI for Strep Throat Additional Instructions: Drink plenty of fluids. Take tylenol or ibuprofen for pain or fever. Take the medications as directed. Follow up with your regular doctor. GO TO THE ER FOR ANY WORSENING SYMPTOMS Throw your tooth brush away and get a new one. Prescriptions: Amoxicillin [Amoxicillin 500mg Tab] 500 mg PO TID 10 Days #30 tab Transmission Status: Received by Clinic Pharm[facility] Referrals: Belem Philip APRN [Primary Care Provider] - Time of Disposition: 10:14 Medical Decision Making - Medical Records Medical records reviewed: No: I reviewed the patient's medical records. - Benito Inquiry Pt receiving controlled substance: No Vital Signs: 04/21/21 09:49 04/21/21 09:54 Temperature 98.5 F 98.5 F Temperature Source Oral Pulse Rate 105 H Pulse Rate [Left] 105 H Respiratory Rate 19 19 Blood Pressure 143/87 H Blood Pressure [Right Arm] 143/87 H Blood Pressure Mean [Right Arm] 105 02 Sat by Pulse Oximetry 98 - Lab Data Lab results reviewed: Yes: I reviewed the patient's lab results. Lab Results 04/21/21 09:59: Strep Scn Rapid Clinic Positive A [facility] HPI - General Stated complaint: sore throat, cough Time Seen by Provider: 04/21/21 10:12 Mode of Arrival: Ambulatory Source of Information: Patient Limitations: No Limitations Description of Symptoms (Recalled from Triage Doc. by RN): pt c/o cough and sore throat x2 days. HEENT Symptoms (Recalled from RN notes): Yes (sore throat) Resp Symptoms (Recalled from RN notes): Yes (cough) Skin Symptoms (Recalled from RN notes): No MS Symptoms (Recalled from RN notes): No Functional Status (Recalled from RN notes): wnl - History of Present Illness Provider Complaint: She c/o sore throat and feeling bad for the past 2 days. - Related Data Previous Rx's Medication Instructions Recorded Ondansetron [Zofran 4mg ODT] 4 mg PO TIDP PRN #12 tab 08/18/20 Tamsulosin HCl [Flomax 0.4mg 0.4 mg PO HS 7 Days #7 cap 08/18/20 capsule] Amoxicillin [Amoxicillin 500mg Tab] 500 mg PO TID 10 Days #30 tab 04/21/21 Allergies Allergy/AdvReac Type Severity Reaction Status Date / Time acetaminophen [From [facility]] Allergy Mild Verified 04/09/20 10:30 hydrocodone [From [facility]] Allergy Mild Verified 04/09/20 10:30 - Worker's Comp Is this a Worker's Comp case?: No H History - Hepatitis A Screen Drug use history?: No High risk sexual behaviors?: No History of sexually transmitted infection?: No Currently employed?: No Childcare worker?: No Do you have indoor plumbing?: Yes Do you have electricity?: Yes Attestation statement:: This patient has been screened for Hepatitis A risk factors. I have reviewed the patient's past medical history: Yes Medical History: Reports:: Depression, Heart Murmur, Migraine Denies:: Anxiety, Cancer, Diabetes Mellitus Type 1, Diabetes Mellitus Type 2, Hyperlipidemia, Hypertension, Internal Pacemaker, MRSA, Seizures Other Medical History: Reports: Thyroid Disease. Denies: Blood Transfusion Reaction Other Surgeries: Yes: No Previous Surgery, Tubal Ligation, Other. No: Pacemaker Amputation: No Fractures: Yes (wrist) Comment: wisdom teeth, kidney stone, broke left wrist - Social History Smoking Status: Never smoker Alcohol Intake: never Substance Use Type: denies use Occupational Status: student Housing: house Household Members: spouse - Psychiatric History Pschychiatric History:: Reports:: Depression Denies:: Anxiety Family Hx:: Kidney Disease, Coronary Artery Disease Comment: Paternal Grandmother-[facility] history: Tubal Ligation ROS Obtained: Yes All systems reviewed & no additional complaints - Constitutional Constitutional: Reports as per HPI - Eyes Eyes: Denies eye discharge - ENT Ears, Nose, Mouth, and Throat: Report
== END 2021-04-21 10:29 | disposition home or self-care (01) ==
PROVIDERS: Emergency Provider Nurse Practitioner Family; PCP Nurse Practitioner Family
DX: J02.0 Streptococcal pharyngitis (principal)
CPT/HCPCS: 87880; 99202; G0463

== ENCOUNTER → 2021-05-06 08:28 | Outpatient (CLI) | payer MEDICAID, SELFPAY ==
--- NOTE | 2021-05-06 08:32 | XR_ITS ---
PROCEDURE: XR WRIST LT MIN 3V CLINICAL INDICATION: left wrist pain COMPARISON: CR HANDL3 HAND-LT-3 VIEWS from 10/29/2016 CR WRL3 WRIST-3 VIEWS-LT from 11/05/2016 CR WRL3 WRIST-3 VIEWS-LT from 11/12/2016 CR WRL3 WRIST-3 VIEWS-LT from 12/07/2016 CR WRL3 WRIST-3 VIEWS-LT from 01/19/2017 CR WRL3 WRIST-3 VIEWS-LT from 03/02/2017 FINDINGS: Prior ORIF distal radius with good alignment. Anterior bone plate is present. There is a longitudinal lucency noted in the mid aspect of the distal radius on the AP view and could be related to residual fracture line. No other significant anomalies are evident. IMPRESSION: Prior ORIF distal radius with longitudinal lucency through the mid aspect of the distal radius which could be related to residual fracture line or even a refracture in the event of re-injury. Dictated by: Kev Perkins MD 05/06/2021 13:47 Kev Perkins MD in [place] 05/06/2021 13:47
== END ==
PROVIDERS: PCP Nurse Practitioner Family; Visit Provider Orthopaedic Surgery
DX: M25.532 Pain in left wrist (principal)
CPT/HCPCS: 73110

== ENCOUNTER 2021-05-06 09:57 | Outpatient (RCR) | payer MEDICAID, SELFPAY | END 2021-05-06 11:00 | disposition home or self-care (01) | LOC: OT 09:57 | PROVIDERS: Visit Provider Orthopaedic Surgery | DX: M25.532 Pain in left wrist (principal); M65.4 Radial styloid tenosynovitis [de Quervain] | CPT/HCPCS: 97763 ==

== ENCOUNTER 2021-05-26 10:00 | Outpatient (RCR) | payer MEDICAID, SELFPAY ==
--- NOTE | 2021-05-11 10:47 | HMH.OTOPEV ---
OT Inpatient Evaluation Rehab OT Outpatient Eval Start: 05/11/21 10:32 Freq: Status: Active Protocol: Document 05/11/21 10:33 [facility] (Rec: 05/11/21 10:47 [id number] Electronically Signed By Francois Sifuentes OT 05/11/21 10:33 Outpatient Therapy Subjective History Subjective History Pt is a 30 year old female who reports to therapy for initial evaluation to left thumb. Pt was seen ~4 years ago following a L wrist ORIF after a fall and fx. Pt reports recently (~3 weeks ago ) she began having pain and swelling in left thumb base. She does not recall a specific injury causing the pain and swelling to begin. Pt was diagnosed by ortho with Left DeQuervains and has been in a thumb spica brace now for ~ 1 week. Pt demonstrates with decreased strength, beet end supervisor strength, and AROM. Pt will continue to be seen twice a week in order to address all deficits. STG AROM goals IP Flex: 50 degrees Abduction: 50 degrees LTG AROM goals IP Flex: 70 degrees Abduction: 70 degrees STG L hand beet end supervisor strength: 25 lbs LTG L hand beet end supervisor strength: 40 lbs Chief Complaint Pain,Stiff,Weakness Symptom Type Ache,Throb,Sharp,Dull Symptoms Relieved By Rest/Positioning Symptoms Aggravated By Physical Activity,Lifting Prior Functional Limitations None Current Functional Limitations Reaching,Lifting,Housework, Dressing,Sleeping,Recreation Activity Symptom Description Constant but Variable Level of pain today (0-10) 2 Pain scale - at its best (0-10) 1 Pain scale - at its worst (0-10) 6 Wrist/Hand Eval Thumb Range of Motion Left Thumb Metacarpophalangeal Flexion Active 50 degrees Range of Motion (degrees) Thumb Metacarpophalangeal Extension 0 degrees Active Range of Motion (degrees) Thumb Palmar Abduction (Carpometacarpal 30 degrees Flex) Active Range (degrees) Thumb Interphalangeal F
== END 2021-05-26 10:05 | disposition home or self-care (01) ==
LOC: OT 10:00
PROVIDERS: PCP Nurse Practitioner Family; Visit Provider Orthopaedic Surgery
DX: M25.532 Pain in left wrist (principal); M65.4 Radial styloid tenosynovitis [de Quervain]
CPT/HCPCS: 97010; 97014; 97035; 97110; 97140; 97166; G0283

== ENCOUNTER 2021-06-04 17:43 | Emergency (ER) | payer MEDICAID, SELFPAY ==
[2021-06-04 17:44] VITALS: BP 107/72; PULSE 65; RESP 20; TEMP 36.6; O2SAT 98; BMI 21.7
--- NOTE | 2021-06-04 18:08 | ECG_ITS ---
APPROVED REPORT Exam: Resting ECG HR:69 bpm ECG Measurements Heart Rate 69 AXES WI 114 P 56 QRSd 98 QRS 72 QT 400 T 52 QTc 428 Conclusion Normal sinus rhythm Normal ECG Electronically signed by : Vinod Farr MD 06/05/2021 17:33:49
--- NOTE | 2021-06-04 18:25 | HMH.EDGENADL ---
ED Disposition Clinical Impression: Syncopal episodes Qualifiers: Syncope type: unspecified Qualified Code(s): R55 - Syncope and collapse Disposition: Home, Self-Care Condition on Discharge: Good Additional Instructions: follow up pcp return for worse Referrals: Belem Philip APRN [Primary Care Provider] - - Critical Care Critical Care Time: No Attestation: On , the high probability of a clinically significant, sudden or life threatening deterioration of the following system(s) required my full and direct attention, intervention and personal management. The time I documented below is in addition to time spent performing reported procedures but includes the following listed in this critical care notation. Medical Decision Making - Benito Inquiry Pt receiving controlled substance: No - Lab Data Lab Results 06/04/21 18:32: WBC 5.6, RBC 4.23, Hgb 12.6, Hct 38.3, MCV 90.5, MCH 29.8, MCHC 32.9, RDW 13.6, Plt Count 318, MPV 7.9, Neut % (Auto) 55.1, Lymph % (Auto) 33.4, [place] % (Auto) 6.1, Eos % (Auto) 3.6, Baso % (Auto) 1.8, Neut # (Auto) 3.1, Lymph # (Auto) 1.9, [place] # (Auto) 0.3, Eos # (Auto) 0.2, Baso # (Auto) 0.1 06/04/21 18:32: Sodium 140, Potassium 3.9, Chloride 103, Carbon Dioxide 28, Anion Gap 12.9, BUN 13, Creatinine 0.60, Estimated Creat Clear 134, Estimated GFR 118, Est GFR ( Amer) 143, Glucose 100, Calcium 9.2, Total Bilirubin 0.5, AST 33, ALT 28, Alkaline Phosphatase 56, Troponin I < 0.01, Total Protein 7.4, Albumin 4.6, Globulin 2.8, Albumin/Globulin Ratio 1.6 06/04/21 18:32: Urine Color Yellow, Urine Appearance Clear, Urine pH 6.5, Ur Specific [place] <= 1.005, Urine Protein Negative, Urine Glucose (UA) Negative, Urine Ketones Negative, Urine Blood Negative, Urine Nitrate Negative, Urine Bilirubin Negative, Urine Urobilinogen 0.2, Ur Leukocyte Esterase Negative, Urine RBC None, Urine WBC None, Ur Squamous Epith Cells Occasional, Urine Bacteria None 06/04/21 18:32: Urine HCG, Qual Negative Result diagrams: 06/04/21 18:32 06/04/21 18:32 Orders (Tests/Meds): ORDERS Category Date Time Status Troponin I Q3H Lab 06/04/21 21:30 Ordered Troponin I Q3H Lab 06/05/21 00:30 Ordered - ECG Data Tracing #1 ekg by me nsr, qrs nml, no st elev Medical Decision Narrative: reeval, vss, appears well, asymptomatic, ok with plan to f/u pcp General Adult HPI - General Stated complaint: dizzy spills, passing out Time Seen by Provider: 06/04/21 18:25 Source of Information: Patient Limitations: No Limitations - History of Present Illness HPI narrative: 3x syncopal episodes today brief spont resolved unwitnessed, no assoc symptoms, feels nml now Severity: mild Relieving factors: none Exacerbating factors: none Associated symptoms: denies other symptoms - Related Data Home Medications Medication Instructions Recorded Confirmed No Known Home Medications 06/03/21 06/03/21 Allergies Allergy/AdvReac Type Severity Reaction Status Date / Time lidocaine Allergy Severe Hives Verified 06/03/21 11:20 acetaminophen [From [facility]CO] Allergy Mild Verified 06/03/21 10:27 hydrocodone [From [facility]] Allergy Mild Verified 06/03/21 10:27 [facility] History - Hepatitis A Screen Attestation statement:: This patient has been screened for Hepatitis A risk factors. Medical History: Reports:: Depression, Heart Murmur, Migraine Denies:: Anxiety, Cancer, Diabetes Mellitus Type 1, Diabetes Mellitus Type 2, Hyperlipidemia, Hypertension, Internal Pacemaker, MRSA, Seizures Other Medical History: Reports: Thyroid Disease. Denies: Blood Transfusion Reaction Other Surgeries: Yes: No Previous Surgery, Tubal Ligation, Other. No: Pacemaker Amputation: No Fractures: Yes (wrist) Comment: wisdom teeth, kidney stone, broke left wrist - Social History Smoking Status: Never smoker Alcohol Intake: never Substance Use Type: denies use Occupational Status: student Housing: house Household Members: spouse - Psy
[2021-06-04 18:37] VITALS: BMI 21.7
[2021-06-04 18:42] LABS: Microscopic, Urine URINE MICROSCOPIC (MICROSCOPIC)
[2021-06-04 18:44] LABS: Appearance,Urine CLEAR (Clear); Basophils # 0.1 K/mm3 (0-0.2); Basophils % 1.8 % (0.1-2.0); Bilirubin,Urine Negative (Negative); Blood, Urine Negative (Negative); Eosinophils # 0.2 K/mm3 (0.0-0.4); Eosinophils % 3.6 % (0.1-12.0); Glucose,Urine (UA) Negative (Negative); Hematocrit 38.3 % (37.0-47.0); Hemoglobin 12.6 g/dL (12.2-16.2); Ketones,Urine Negative (Negative); Leukocyte Esterase,Urine Negative (Negative); Lymphocytes # 1.9 K/mm3 (0.7-4.5); Lymphocytes % 33.4 % (10-50); Mean Corpuscular HGB Conc 32.9 g/dL (31.8-35.4); Mean Corpuscular Hemoglobin 29.8 pg (27.0-31.2); Mean Corpuscular Volume 90.5 fl (81-99); Mean Platelet Volume 7.9 fl (7.4-10.4); Monocytes # 0.3 K/mm3 (0.1-1.0); Monocytes % 6.1 % (1.7-9.3); Neutrophils # 3.1 K/mm3 (1.8-7.8); Neutrophils % 55.1 % (37.0-80.0); Nitrate,Urine Negative (Negative); PH,Urine 6.5 (5.0-8.5); Platelet Count 318 K/mm3 (142-424); Protein,Urine Negative (Negative); Red Blood Count 4.23 M/mm3 (4.20-5.40); Red Cell Distribution Width 13.6 % (11.5-17.5); Specific Gravity, Urine <= 1.005 (1.005-1.030); Urobilinogen,Urine 0.2 EU/dl (0.2); White Blood Count 5.6 K/mm3 (4.8-10.8)
[2021-06-04 18:45] LABS: Chloride 103 mmol/L (98-107); Potassium 3.9 mmoL/L (3.5-5.1); Sodium 140 mmol/L (136-145)
[2021-06-04 18:48] LABS: Alanine Aminotransferase 28 U/L (12-78); Albumin Level 4.6 g/dl (3.5-5.0); Albumin/Globulin Ratio 1.6 (1.1-1.8); Alkaline Phosphatase 56 U/L (38-126); Anion Gap 12.9 mEq/L (5-15); Aspartate Amino Transferase 33 U/L (14-36); Bilirubin,Total 0.5 mg/dl (0.2-1.3); Blood Urea Nitrogen 13 mg/dl (7-17); Calcium 9.2 mg/dl (8.4-10.2); Carbon Dioxide 28 mmol/L (22.0-30.0); Creatinine Clearance Estimated 134 mL/min (50-200); Estimated Glomerular Filt Rate 118 ml/min (>60); GFR (African American) 143 ML/MIN (>60); Globulin 2.8 g/dL (1.3-3.2); Glucose 100 mg/dl (74-100); Total Protein,Serum 7.4 g/dl (6.3-8.2)
[2021-06-04 18:54] LABS: Urine Pregnancy, HCG Qual. Negative (Negative)
[2021-06-04 18:56] LABS: Color,Urine Yellow (Yellow)
[2021-06-04 19:02] LABS: Troponin I < 0.01 ng/ml (0.00-0.034)
[2021-06-04 19:05] LABS: Squamous Epithelial Cell,Urine Occasional #/hpf (0-5)
[2021-06-04 19:50] VITALS: BP 110/72; BP 125/65; PULSE 60; PULSE 78; RESP 16; RESP 20; TEMP 36.6; TEMP 36.7; O2SAT 98
== END 2021-06-04 19:51 | disposition home or self-care (01) ==
PROVIDERS: Emergency Provider Emergency Medicine; PCP Nurse Practitioner Family
DX: R55 Syncope and collapse (principal); E03.9 Hypothyroidism, unspecified
CPT/HCPCS: 80053; 81001; 81025; 84484; 85025; 93005; 99283

== ENCOUNTER → 2022-05-17 12:49 | Outpatient (CLI) | payer MEDICAID, SELFPAY ==
--- NOTE | 2022-05-17 12:54 | US_ITS ---
FINAL REPORT CLINICAL HISTORY: DISORDER OF THYROID GLAND COMPARISON: 12/10/2019 FINDINGS: US THYROID/HEAD OR NECK SOFT TISSUE Limited sonographic images of the thyroid were obtained. The thyroid is somewhat enlarged. The right lobe of the thyroid measures 4.4 x 1.4 x 1.7 cm. The left lobe of the thyroid measures 4.8 by 1.4 x 1.6 cm. The isthmus measures 0.21 cm. No mass or nodule is identified. IMPRESSION: No mass or nodule is identified. Reviewed, Interpreted and Dictated by Geo Pickens III, MD Transcribed by Sonia Betancourt Authenticated and [facility]
== END ==
PROVIDERS: PCP Nurse Practitioner Family; Visit Provider Nurse Practitioner Family
DX: E07.9 Disorder of thyroid, unspecified (principal)
CPT/HCPCS: 76536

== ENCOUNTER 2023-01-27 14:01 | Emergency (ER) | payer MEDICAID, SELFPAY ==
[2023-01-27 14:02] VITALS: BP 147/93; PULSE 87; RESP 18; TEMP 37.2; O2SAT 100; BMI 27.5
[2023-01-27 15:55] VITALS: BP 147/101; PULSE 96; RESP 20; O2SAT 96
[2023-01-27 16:00] VITALS: BP 154/96; PULSE 88; O2SAT 98
--- NOTE | 2023-01-27 16:02 | XR_ITS ---
PROCEDURE INFORMATION: Exam: XR Chest Exam date and time: 01/27/2023 4:17 PM Age: 32 years old Clinical indication: Cough; Additional info: 2 weks cough TECHNIQUE: Imaging protocol: Radiologic exam of the chest. Views: 2 views. COMPARISON: CT ABDOMEN PELVIS W CON 08/18/2020 8:51 AM FINDINGS: Lungs: Unremarkable. No consolidation. Pleural spaces: Unremarkable. No pleural effusion. No pneumothorax. Heart/Mediastinum: Unremarkable. No cardiomegaly. Bones/joints: Unremarkable. IMPRESSION: No acute findings.
[2023-01-27 16:10] LABS: Microscopic, Urine URINE MICROSCOPIC (MICROSCOPIC)
[2023-01-27 16:14] LABS: Appearance,Urine CLEAR (Clear); Basophils % 0.4 % (0.1-2.0); Bilirubin,Urine Negative (Negative); Blood, Urine Negative (Negative); Color,Urine YELLOW (Yellow); Eosinophils # 0.2 K/mm3 (0.0-0.4); Eosinophils % 2.9 % (0.1-12.0); Glucose,Urine (UA) Negative (Negative); Hematocrit 41.5 % (37.0-47.0); Hemoglobin 13.8 g/dL (12.2-16.2); Ketones,Urine Negative (Negative); Leukocyte Esterase,Urine Negative (Negative); Lymphocytes % 30.6 % (10-50); Mean Corpuscular HGB Conc 33.2 g/dL (31.8-35.4); Mean Corpuscular Hemoglobin 29.3 pg (27.0-31.2); Mean Corpuscular Volume 88.1 fl (81-99); Mean Platelet Volume 7.8 fl (7.4-10.4); Monocytes # 0.4 K/mm3 (0.1-1.0); Monocytes % 5.4 % (1.7-9.3); Neutrophils % 60.7 % (37.0-80.0); Nitrate,Urine Negative (Negative); Platelet Count 277 K/mm3 (142-424); Protein,Urine Negative (Negative); Red Blood Count 4.71 M/mm3 (4.20-5.40); Red Cell Distribution Width 13.6 % (11.5-17.5); Specific Gravity, Urine 1.025 (1.005-1.030); Urobilinogen,Urine 0.2 EU/dl (0.2); White Blood Count 6.6 K/mm3 (4.8-10.8)
[2023-01-27 16:17] LABS: Alanine Aminotransferase 38 U/L (12-78); Albumin/Globulin Ratio 1.3 (1.1-1.8); Alkaline Phosphatase 74 U/L (38-126); Anion Gap 15.9 mEq/L (5-15); Aspartate Amino Transferase 39 U/L (14-36); Bilirubin,Total 0.6 mg/dl (0.2-1.3); Blood Urea Nitrogen 13 mg/dl (7-17); Calcium 9.6 mg/dl (8.4-10.2); Carbon Dioxide 28 mmol/L (22.0-30.0); Chloride 102 mmol/L (98-107); Creatinine Clearance Estimated 151 mL/min (50-200); Estimated Glomerular Filt Rate 98 ml/min (>60); GFR (African American) 118 ML/MIN (>60); Globulin 3.8 g/dL (1.3-3.2); Glucose 105 mg/dl (74-100); Potassium 3.9 mmoL/L (3.5-5.1); Sodium 142 mmol/L (136-145); Total Protein,Serum 8.8 g/dl (6.3-8.2)
[2023-01-27 16:30] VITALS: BP 157/102; PULSE 91; O2SAT 97
--- NOTE | 2023-01-27 16:30 | HMH.EDGENADL ---
Discharge Plan Disposition Patient Disposition: Home, Self-Care Prescriptions Prescriptions: New prednisone 20 mg tablet 40 mg PO BID 5 Days Qty: 20 0RF Referrals Follow up/Referrals: Melvin Alanis APRN [Primary Care Provider] - See instructions Activity Restrictions/Add. Instructions Additional Instructions/Restrictions: Call your family doctor to establish care for this visit to the emergency department and schedule follow-up within 48 hours to ensure improvement. If you have any worsening of your condition or any other concerning signs or symptoms, return to the emergency department or your primary care doctor for further evaluation. Clinical Impressions Clinical Impression: Acute right flank pain, Bronchitis Instructions Patient Instructions: DI for Low Back Pain Discharge ED Provider: Arron Espinosa General Adult HPI General Chief complaint: Back Pain/Injury Stated complaint: cough, right side pain Time Seen by Provider: 01/27/23 14:52 Mode of Arrival: Ambulatory Source of Information: Patient Limitations: No Limitations Description of Symptoms (Recalled from ER Triage Doc. by RN): Pt arrives from pcp office with c/o right flank and groin pain. States that the pain has been going on for several days. Pt saw her pcp who recommended she come to the emergency department for a ct scan. Patient also c/o a cough for the last few weeks. No runny nose or fever. Pt states that she was prescribed a medication from her pcp for her cold which she hasnt started but pcp recommended that she ask for a chest xray from the ed as well. History of Present Illness HPI narrative: Is a 32-year-old female with history of nephrolithiasis presenting with right flank and abdominal pain. Patient states she started having right flank pain on 01/22, since that time, has migrated to right lower quadrant. Denies fevers, chills, nausea, vomiting, dysuria, but had pink urine 1 day prior to arrival. Patient has not had dysuria. Able to tolerate p.o. intake without issue. Has also been coughing for the past month or so, but it is dry cough and nonproductive. Related Data Previous Rx's Medication Instructions Recorded prednisone 20 mg tablet 40 mg PO BID 5 days #20 tabs 01/27/23 Allergies Allergy/AdvReac Type Severity Reaction Status Date / Time lidocaine Allergy Severe Hives Verified 06/03/21 11:20 acetaminophen [From [facility]CO] Allergy Mild Verified 06/03/21 10:27 hydrocodone [From [facility]CO] Allergy Mild Verified 06/03/21 10:27 [facility] Disclaimer: The information contained in this section may have been updated after the patient was seen, as this information can be updated by other users. Social History Smoking Status: Current every day smoker alcohol intake: never substance use type: denies use current occupational status: student Travel in the last 8 weeks: None household members: spouse housing: house current occupational exposures/hazards: No caffeine: Yes ROS Obtained: Yes All systems reviewed & no additional complaints except as documented Physical Exam General General appearance: alert, in no apparent distress and other ( ) Head Head exam: atraumatic and normocephalic Eye Eye exam: Present normal appearance, PERRL and EOMI ENT ENT exam: Present mucous membranes moist Neck Neck exam: Present normal inspection, full ROM and trachea midline Respiratory Respiratory exam: Absent respiratory distress, wheezes, stridor, accessory muscle use or prolonged expiratory phase Cardiovascular Cardiovascular exam: Present regular rate and normal rhythm Abdominal Exam Abdominal exam: Present soft; Absent distention, tenderness, guarding, rebound, rigidity or normal bowel sounds Extremities Exam Extremities exam: Absent edema Back Exam Back exam: Present CVA tenderness (R); Absent CVA tenderness (L) Neurological Exam Neurological exam: Present alert, oriented X3, CN II-XII intact and normal gait; Absent m
[2023-01-27 16:38] LABS: Squamous Epithelial Cell,Urine Occasional #/hpf (0-5); WBC,Urine Occasional #/hpf (0-3)
[2023-01-27 17:00] VITALS: BP 144/96; PULSE 94; O2SAT 97
[2023-01-27 17:40] VITALS: BP 145/82; PULSE 80; RESP 18; TEMP 36.4; O2SAT 97
== END 2023-01-27 17:41 | disposition home or self-care (01) ==
PROVIDERS: Emergency Provider Emergency Medicine; PCP Nurse Practitioner Family
DX: J40 Bronchitis, not specified as acute or chronic (principal); F17.200 Nicotine dependence, unspecified, uncomplicated; N13.30 Unspecified hydronephrosis
CPT/HCPCS: 71046; 80053; 81001; 85025; 96374; 99285

== ENCOUNTER 2023-06-17 06:32 | Outpatient (CLI) | payer MEDICAID, SELFPAY ==
--- NOTE | 2023-06-17 | US_ITS ---
PROCEDURE INFORMATION: Exam: US Left Breast, Complete Exam date and time: 06/17/2023 7:14 AM Age: 32 years old Clinical indication: Palpable abnormality in the left breast TECHNIQUE: Imaging protocol: Complete ultrasound of all four quadrants of the left breast and the retroareolar regions, including ultrasound of the axilla when performed. COMPARISON: No relevant prior studies available. FINDINGS: Breast: Sonographic images of the left breast including the retroareolar region, all 4 quadrants and the axilla do not demonstrate any solid or cystic masses. This is with particular attention to the 1 o'clock axis 8 cm from the nipple where the patient reports a palpable abnormality. No architectural distortion or acoustical shadowing. No skin thickening or axillary adenopathy. IMPRESSION: A skin marker should be placed over the area of palpable concern followed by a diagnostic unilateral mammogram with spot compression views for full evaluation of the patient's complaint of a palpable abnormality. ASSESSMENT: BI-RADS Category 0: Incomplete- Need Additional Imaging Evaluation and/or Prior Mammograms for Comparison
--- NOTE | 2023-06-17 | US_ITS ---
FINAL REPORT TECHNIQUE: Limited sonographic images of the thyroid were obtained. CLINICAL HISTORY: follow up COMPARISON: 05/17/2022 FINDINGS: The right lobe of the thyroid measures 5.0 x 1.5 x 1.7 cm. No mass or nodule is identified. The left lobe of the thyroid measures 4.9 x 1.3 x 1.7 cm. No mass or nodule is identified. The isthmus measures 3 mm. IMPRESSION: Unremarkable thyroid ultrasound. Reviewed, Interpreted and Dictated by Bereket Islas MD Transcribed by Sonia Betancourt Authenticated and . [facility]
== END 2023-06-17 23:59 ==
PROVIDERS: PCP Nurse Practitioner Family; Visit Provider Nurse Practitioner Family
DX: N63.20 Unspecified lump in the left breast, unspecified quadrant (principal); E07.9 Disorder of thyroid, unspecified
CPT/HCPCS: 76536; 76641

== ENCOUNTER 2023-06-18 08:02 | Outpatient (CLI) | payer MEDICAID, SELFPAY ==
[2023-06-18 09:11] LABS: Hematocrit 36.6 % (37.0-47.0); Hemoglobin 12.5 g/dL (12.2-16.2); Mean Corpuscular HGB Conc 34.1 g/dL (31.8-35.4); Mean Corpuscular Hemoglobin 29.5 pg (27.0-31.2); Mean Corpuscular Volume 86.4 fl (81-99); Platelet Count 290 K/mm3 (142-424); Red Blood Count 4.24 M/mm3 (4.20-5.40); Red Cell Distribution Width 13.6 % (11.5-17.5); White Blood Count 6.5 K/mm3 (4.8-10.8)
[2023-06-18 09:38] LABS: Alanine Aminotransferase 32 U/L (12-78); Albumin Level 4.3 g/dl (3.5-5.0); Albumin/Globulin Ratio 1.6 (1.1-1.8); Alkaline Phosphatase 61 U/L (38-126); Anion Gap 15.6 mEq/L (5-15); Aspartate Amino Transferase 34 U/L (14-36); Bilirubin,Total 0.6 mg/dl (0.2-1.3); Blood Urea Nitrogen 10 mg/dl (7-17); Calcium 9.6 mg/dl (8.4-10.2); Carbon Dioxide 25 mmol/L (22.0-30.0); Chloride 103 mmol/L (98-107); Chol/HDL Ratio 4.5 (1-3.5); Cholesterol 159 mg/dl (140-200); Estimated Glomerular Filt Rate 117 ml/min (>60); GFR (African American) 141 ML/MIN (>60); Globulin 2.7 g/dL (1.3-3.2); Glucose 108 mg/dl (74-100); HDL Cholesterol 35 mg/dl (40-60); Potassium 4.6 mmoL/L (3.5-5.1); Sodium 139 mmol/L (136-145); Triglycerides 159 mg/dl (30-150); VLDL Cholesterol 32 mg/dL (0-40)
[2023-06-18 09:50] LABS: Direct LDL Cholesterol 96.23 mg/dL (100-129)
[2023-06-18 09:55] LABS: Free T4 (Free Thyroxine) 1.32 ng/dl (0.78-2.19)
[2023-06-18 10:09] LABS: Thyroid Stimulating Hormone 0.87 uIU/mL (0.465-4.68)
== END 2023-06-18 23:59 ==
LOC: LAB 08:04
PROVIDERS: PCP Nurse Practitioner Family; Visit Provider Nurse Practitioner Family
DX: E07.9 Disorder of thyroid, unspecified (principal)
CPT/HCPCS: 36415; 80053; 80061; 84439; 84443; 85014; 85018; 85048; 85049

== ENCOUNTER 2023-07-01 10:14 | Outpatient (CLI) | payer MEDICAID, SELFPAY ==
--- NOTE | 2023-07-01 10:20 | MM_ITS ---
PROCEDURE INFORMATION: Exam: Left Diagnostic Breast Tomosynthesis Exam date and time: 07/01/2023 10:23 AM Age: 32 years old Clinical indication: Left breast palpable lump TECHNIQUE: Imaging protocol: Left Diagnostic tomosynthesis and 2D mammography including computer-aided detection (CAD) when performed. Unilateral or bilateral exam. COMPARISON: US BREAST LT COMPLETE 06/17/2023 7:14 AM FINDINGS: MAMMOGRAPHY: The breast is heterogeneously dense, which may obscure small masses. There is no stellate mass, architectural distortion or suspicious microcalcifications to suggest malignancy. Routine and spot compression views over the area of palpable concern in the left upper outer quadrant do not demonstrate any suspicious findings. No skin thickening or axillary adenopathy. Review of the most recent sonogram dated 06/17/2023 did not demonstrate any suspicious findings IMPRESSION: Palpable abnormality in the left breast corresponds both mammographically and sonographically to normal fibroglandular structures. There is no mammographic evidence of malignancy. Further evaluation of a palpable abnormality should be based on clinical grounds regardless of radiographic findings or lack thereof. Annual bilateral mammographic screening is recommended to commence at the age of 40 unless otherwise clinically indicated. ASSESSMENT: BI-RADS Category 1: Negative
== END 2023-07-01 23:59 ==
LOC: RAD 10:14
PROVIDERS: PCP Nurse Practitioner Family; Visit Provider Nurse Practitioner Family
DX: N63.20 Unspecified lump in the left breast, unspecified quadrant (principal)
CPT/HCPCS: 77061; 77065; G0279

== ENCOUNTER 2023-09-09 10:28 | Outpatient (CLI) | payer MEDICAID, SELFPAY ==
[2023-09-09 11:02] LABS: Basophils % 0.7 % (0.1-2.0); Eosinophils # 0.1 K/mm3 (0.0-0.4); Eosinophils % 2.3 % (0.1-12.0); Hematocrit 37.4 % (37.0-47.0); Hemoglobin 12.3 g/dL (12.2-16.2); Lymphocytes # 1.9 K/mm3 (0.7-4.5); Lymphocytes % 29.7 % (10-50); Mean Corpuscular Hemoglobin 29.9 pg (27.0-31.2); Mean Corpuscular Volume 90.6 fl (81-99); Mean Platelet Volume 7.9 fl (7.4-10.4); Monocytes # 0.3 K/mm3 (0.1-1.0); Neutrophils # 3.9 K/mm3 (1.8-7.8); Neutrophils % 62.3 % (37.0-80.0); Platelet Count 284 K/mm3 (142-424); Red Blood Count 4.13 M/mm3 (4.20-5.40); Red Cell Distribution Width 14.3 % (11.5-17.5); White Blood Count 6.2 K/mm3 (4.8-10.8)
[2023-09-09 11:24] LABS: Alanine Aminotransferase 25 U/L (12-78); Albumin Level 4.5 g/dl (3.5-5.0); Alkaline Phosphatase 61 U/L (38-126); Anion Gap 10.9 mEq/L (5-15); Aspartate Amino Transferase 28 U/L (14-36); Bilirubin,Total 1.1 mg/dl (0.2-1.3); Blood Urea Nitrogen 11 mg/dl (7-17); Calcium 9.6 mg/dl (8.4-10.2); Carbon Dioxide 25 mmol/L (22.0-30.0); Chloride 106 mmol/L (98-107); Chol/HDL Ratio 4.8 (1-3.5); Cholesterol 190 mg/dl (140-200); Estimated Glomerular Filt Rate 116 ml/min (>60); GFR (African American) 140 ML/MIN (>60); Globulin 2.3 g/dL (1.3-3.2); Glucose 98 mg/dl (74-100); HDL Cholesterol 40 mg/dl (40-60); Potassium 3.9 mmoL/L (3.5-5.1); Sodium 138 mmol/L (136-145); Total Protein,Serum 6.8 g/dl (6.3-8.2); Triglycerides 132 mg/dl (30-150); VLDL Cholesterol 26 mg/dL (0-40)
[2023-09-09 11:35] LABS: Direct LDL Cholesterol 105.66 mg/dL (100-129)
[2023-09-09 11:55] LABS: Thyroid Stimulating Hormone 1.52 uIU/mL (0.465-4.68)
[2023-09-10 09:13] LABS: Thyroid Peroxidase Antibodies <9 IU/mL (0-34)
== END 2023-09-09 23:59 | disposition home or self-care (01) ==
PROVIDERS: PCP Nurse Practitioner Family; Visit Provider Nurse Practitioner Family
DX: E07.9 Disorder of thyroid, unspecified (principal); E78.5 Hyperlipidemia, unspecified
CPT/HCPCS: 36415; 80053; 80061; 84439; 84443; 85025; 86376

== ENCOUNTER 2023-10-11 06:39 | Outpatient (CLI) | payer MEDICAID, SELFPAY ==
--- NOTE | 2023-10-11 06:46 | CT_ITS ---
FINAL REPORT CLINICAL HISTORY: DYSPHAGIA COMPARISON: None FINDINGS: CT NECK SOFT TISSUES WITHOUT CONTRAST: CT examination of the soft tissues of the neck was performed without intravenous contrast. No prevertebral soft tissue swelling is identified. The nasopharynx, oropharynx, hypopharynx, are unremarkable in appearance. 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 No focal adenopathy is identified. IMPRESSION: A. 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 Reviewed, Interpreted and Dictated by Bereket Islas MD Transcribed by Steffanie Valerio Authenticated and [facility]
[2023-10-11 09:01] LABS: Free T4 (Free Thyroxine) 1.04 ng/dl (0.78-2.19)
[2023-10-11 09:02] LABS: 25-OH Vitamin D, Total 26.2 ng/mL (30-100)
[2023-10-11 09:16] LABS: Thyroid Stimulating Hormone 0.74 uIU/mL (0.465-4.68)
[2023-10-11 11:26] LABS: Hemoglobin A1C 5.4 % (4.0-6.0)
[2023-10-12 12:59] LABS: Thyroid Peroxidase Antibodies <9 IU/mL (0-34)
== END 2023-10-11 23:59 | disposition home or self-care (01) ==
LOC: RAD 06:42
PROVIDERS: PCP Nurse Practitioner Family; Visit Provider Nurse Practitioner Family
DX: R13.10 Dysphagia, unspecified (principal); R73.03 Prediabetes; E07.9 Disorder of thyroid, unspecified; E55.9 Vitamin D deficiency, unspecified; Z68.30 Body mass index [BMI] 30.0-30.9, adult
CPT/HCPCS: 36415; 70490; 82306; 83036; 84439; 84443; 86376

== ENCOUNTER 2024-07-13 12:38 | Outpatient (CLI) | payer SELFPAY ==
--- NOTE | 2024-07-13 12:41 | CT_ITS ---
FINAL REPORT TECHNIQUE: Thin section axial images were obtained from the lung apices through the upper abdomen without contrast. Coronal and sagittal reconstructed images were obtained and reviewed. This study was performed with techniques to keep radiation doses as low as reasonably achievable (ALARA). Individualized dose reduction techniques using automated exposure control or adjustment of mA and/or kV according to the patient's size were employed. CLINICAL HISTORY: LUNG NODULE COMPARISON: None FINDINGS: CT CHEST W/O CONTRAST There is no axillary lymphadenopathy. Soft tissue in the anterior mediastinum is favored to be residual thymus. There is no mediastinal or hilar lymphadenopathy. Clips are noted in the lower right neck. Heart size is normal. There is no pericardial or pleural effusion identified. There is a 4 mm subpleural nodule in the right lower lobe just posterior to the fissure on series 3 image 121. There is a right lower lobe nodule measuring 16 mm seen on the axial images. There appears to be some developing central high density that may be developing calcification. There also appears to be a small amount of fat. Limited evaluation of the upper abdomen reveals a fatty liver. The spleen is borderline in size. There is no acute abnormality in the upper abdomen. There is no acute osseous abnormality. IMPRESSION: 16 mm right lower lobe pulmonary nodule that appears to contain developing calcification and may contain fat. This could be a hamartoma. Recommend comparison with any prior exams or consider follow-up if indicated. Fatty liver. Reviewed, Interpreted and Dictated by Danielle Diggs MD Transcribed by Erin Estrada Authenticated and [facility]
== END 2024-07-13 23:59 | disposition home or self-care (01) ==
LOC: RAD 12:39
PROVIDERS: PCP Nurse Practitioner Family; Visit Provider Internal Medicine Critical Care Medicine
DX: R91.1 Solitary pulmonary nodule (principal)
CPT/HCPCS: 71250

== ENCOUNTER 2025-01-10 10:34 | Outpatient (CLI) | payer OTHER, SELFPAY ==
--- NOTE | 2025-01-10 10:37 | US_ITS ---
FINAL REPORT TECHNIQUE: Ultrasound images of the kidneys were obtained. CLINICAL HISTORY: ABNORMAL FINDINGS OF BLOOD CHEMISTRY...LOOKING FOR MASS COMPARISON: None FINDINGS: RENAL ULTRASOUND Limited images of the liver parenchyma demonstrate normal echogenicity. The right kidney measures 11.2 cm in length. The left kidney measures 11.9 cm in length. There are hyperechoic foci in both kidneys probably related to kidney stones. These foci are particularly evident in the superior pole of the left kidney. There is no hydronephrosis or hydroureter.. IMPRESSION: Probable bilateral nonobstructing kidney stones. None infused abdomen and pelvis CT recommended for confirmation. Reviewed, Interpreted and Dictated by Bereket Islas MD Transcribed by Erin Estrada Authenticated and [facility]
--- OUTSIDE RECORDS SUMMARY | 2025-01-10 10:37 | XMS_ITS | Clinical Summary ---
[facility] Address [address] [place] [address] Care Team Providers Care Talent Acquisition Sourcer Name Role Phone Raghu Saldana DO Primary Care Provider [phone] Allergies Active Allergy Reactions Criticality Noted Date Comments Acetaminophen Unknown - Low Severity Low 06/03/2021 Hydrocodone Hives High 06/03/2021 Lidocaine Unknown - Low Severity High 06/03/2021 Other reaction(s): Hives Medications No known medications Active Problems No known active problems Immunizations Immunization Administration Dates Next Due Influenza Injectable Mdck Pf Quad 03/13/2018 Family History Medical History Relation Name Comments Arthritis Father Congenital heart disease Maternal Grandfather Hypertension Maternal Grandfather Diabetes Maternal Grandmother High cholesterol Mother Relation Name Status Comments Father Maternal Grandfather Maternal Grandmother Mother Social History Tobacco Use Types Packs/Day Years Used Date Smoking Tobacco: Never Smokeless Tobacco: Never Tobacco Cessation:Counseling Given: Not Answered Alcohol Use Standard Drinks/Week Comments Never 0 (1 standard drink = 0.6 oz pur e alcohol) Abuse Screen Answer Date Recorded Unsafe at Home or Work/School Not on file Feels Threatened by Someone? Not on file Does Anyone Keep You from Co ntacting Others or Doint Things Outside the Home? Not on file 03/04/2023 Physical Sign of Abuse Present Not on file 1 Housing Stability Answer Date Recorded Current Living Arrangements Not on file 02/20 Potentially Unsafe Housing Conditions Not on anibal e 03/04/2023 Family and Community Support Answer Nikolas e Recorded Help with Day-to-Day Activities Not on file 03/04/2023 Lonely or Isolated Not on file 03/04/2023 Employment Answer Date Recorded Do you want help finding or keeping work or a floyd b? Not on file 03/04/2023 Disabilities Answer Date Recorded Concentrating, Remembering, or Making Decisions Difficulty Not on file 03/04/2023 Doing Errands Independently Difficulty Not on fi le 03/04/2023 Education Answer Date Recorded Help with school or training? Not on file Preferred Language Not on file 03/04/2023 Comments Unknown Sex and Gender Information Value Date Recorded Sex Assigned at Not on file Legal Sex Female 12:39 PM EST Gender Identity Not on file Sexual Orientation Not on file Last Filed Vital Signs Vital Sign Reading Time Taken Comments Blood Pressure 128/76 02/10/2024 10:52 AM EDT Pulse 75 02/10/2024 10:52 AM EDT Temperature 36.8 C (98.3 F) 02/10/2024 10:52 AM EDT Respiratory Rate - - Oxygen Saturation 99% 02/10/2024 10: 52 AM EDT room air at rest Inhaled Oxygen Concentration - - Weight 86.2 kg (190 lb) 02/10/2024 10:5 2 AM EDT Height 165.1 cm (5' 5 ) 02/10/2024 10:5 2 AM EDT Body Mass Index 31.62 02/10/2024 10:52 AM EDT Plan of Treatment Health Maintenance Due Date Last Done Comments Annual Gynecologic Pelvic an d Breast Exam 1991 TDAP/TD VACCINES (1 - Tdap) 2010 PAP SMEAR 2012 COVID-19 Vaccine (2 - 2023-2 5 season) 2024 03/25/2021 ANNUAL PHYSICAL 02/09/2024 HEPATITIS C SCREENING 02/09/2024 INFLUENZA VACCINE 02/20/2025 03/13/2018 Pneumococcal Vaccine 0-49 Aged Out No longer eligible based on patient's age to complete this topic Care Teams Talent Acquisition Sourcer Relationship Specialty Start Date End Date Raghu Saldana DO [address] [place] [address] PCP - General Vascular Surgery 01/03/24
--- OUTSIDE RECORDS SUMMARY | 2025-01-10 10:37 | XMS_ITS | Clinical Summary ---
Author Organization [employer] ([place], [place], [place], [place]) Address [address] [place] [address] Care Team Providers Care Predictive Maintenance Technician Name Role Phone Melvin Alanis Primary Care Provider [phone] Allergies Active Allergy Reactions Criticality Noted Date Comments Hydrocodone Hives High 06/03/2021 Lidocaine High 06/03/2021 Other reaction(s): Hives Medications Vitamin D2 1,250 mcg (50,000 unit) capsule Take 1 capsule (50,000 Units total) by mouth once a week TUESDAY. 10/13/2023 Active multivitamin per tablet Take 1 tablet by mouth daily. 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 Social History Tobacco Use Types Packs/Day Years Used Date Smoking Tobacco: Never Smokeless Tobacco: Never Tobacco Cessation:Counseling Given: Not Answered Alcohol Use Standard Drinks/Week Comments Never 0 (1 standard drink = 0.6 oz pur e alcohol) [facility] - Mental Health Answer Date Recorde d Little interest or pleasure in doing things Not at all 11/30/2023 Feeling down, depressed, or hopeless Not at all 11/30/2023 Feeling of Stress Not on file 11/30/2023 [facility] Intimate Partner Violence Answer Da te Recorded Within the last year, have y ou been afraid of your partner or ex-partner? No 11/30/2023 Within the last year, have y ou been humiliated or emotionally abused in other ways by your partner or ex-partner? No Within the last year, have y ou been kicked, hit, slapped, or otherwise physically hurt by your partner or ex-partner? No 11/30/2023 Within the last year, have y ou been raped or forced to have any kind of sexual activity by your partner or ex-partner? No 11/30/2023 Utilities Answer Date Recorded In the past 12 months, has t he electric, gas, oil, or water company threatened to shut off services in your home? No 12/07/2023 Interpersonal Safety Answer Date Record ed How often does anyone, carlee rust family and friends, physically hurt you? Never 12/07/2023 How often does anyone, carlee rust family and friends, insult or talk down to you? Never 12/07/2023 How often does anyone, carlee rust family and friends, threaten you with harm? Never 12/07/2023 How often does anyone, carlee rust family and friends, scream or curse at you? Never 12/07/2023 Housing Stability Answer Date Recorded What is your living situation today? I h ave a place to live today, but I am worried about losing it in the future 12/07/[address] you li ve. Do you have problems with any of the following? None of the above 12/07/2023 Food Insecurity Answer Date Recorded Within the past 12 months, y ou worried that your food would run out before you got money to buy more. Never true 12/07/2023 Within the past 12 months, t he food you bought just didn't last and you didn't have money to get more. Never true 12/07/2023 Transportation Needs Answer Date Record ed In the past 12 months, has l ack of reliable transportation kept you from medical appointments, meetings, work or from getting things needed for daily living? No 12/07/2023 Financial Resource Strain Answer Date R ecorded How hard is it for you to pa y for the very basics like food, housing, medical care, and heating? Would you say it is: Not hard at all 12/07/2023 Employment Answer Date Recorded Do you want help finding or keeping work or a job? I do not need or want help 12/07/2023 Family and Community Support Answer Nikolas e Recorded If for any reason you need h elp with day-to-day activities such as bathing, preparing meals, shopping, managing finances, etc., do you get the help you need? I don't need any help 12/07/2023 Feeling Lonely or Isolated 0 12/06 Educational Attainment Answer Date Greg rded Do you speak a language other than [place] at ho ut? No 12/07/2023 Do you want help with school or training? For example, starting or completing job training or getting a high school diploma, GED or equivalent. No 12/07/2023 Physical Activity Answer Date Recorded Number of minutes of exercise per week 300 12/07/2023 Self Management Answer Date Recorded Because of a physical, menta l, or emotional condition, do you have serious difficulty concentrating, remembering, or making decisions? (5 years or older) No 12/07/2023 Because of a physical, menta l, or emotional condition, do you have difficulty doing errands alone such as visiting a doctor's office or shopping? (15 years or older) No 12/07/2023 Substance Use Answer Date Recorded How many times in the past y ear have you used prescription drugs for non-medical reasons? Never 12/07/2023 How many times in the past year have you used il legal drugs? Never 12/07/2023 Mental Health Answer Date Recorded Calculation of above two rows 0 Comments No Sex and Gender Information Value Date Recorded Sex Assigned at Not on file Legal Sex Female 5:12 PM CDT Gender Identity Not on file Sexual Orientation Not on file Last Filed Vital Signs Vital Sign Reading Time Taken Comments Blood Pressure 153/78 09/05/2024 4:08 PM EDT Pulse 87 09/05/2024 4:08 PM EDT Temperature 36.9 C (98.4 F) 09/05/2024 1:59 PM EDT Respiratory Rate 20 09/05/2024 4:08 PM EDT Oxygen Saturation 100% 09/05/2024 4:08 PM EDT Inhaled Oxygen Concentration - - Weight 82.6 kg (182 lb) 09/05/2024 1:59 PM EDT Height 167.6 cm (5' 6 ) 09/05/2024 1:59 PM EDT Body Mass Index 29.38 09/05/2024 1:59 PM EDT Plan of Treatment Health Maintenance Due Date Last Done Comments Depression Screening (12+) 2003 HIV Screening 2006 Hepatitis C Screening 2009 DTAP/TDAP/TD VACCINES (1 - Tdap) 2010 Pap Smear 2012 COVID-19 VACCINE (2 - 2023-2 5 season) 2024 03/25/2021 Influenza Vaccine (#1) 2025 03/13/2018 Tobacco Cessation Counseling and Screening (12+) 09/05/2025 09/05/2024 Pneumococcal Vaccine: 0-49 Years Aged Out No longer eligible based on patient's age to complete this topic Medical Devices Implanted Type Area Custom Shoe Designer And Maker Device Identifier Shelf Expiration Date Model / Serial / Lot Grft Vasc Wvn Plat [id number] - [id number] Implanted:Qty : 1 on 12/07/2023 by Raghu Saldana DO at [facility] IMPLANTS Right: Arterial GETINGE [id number] 03/22/2028 [id number] / [id number] Description:RIGHT CAROTID TO SUBCLAVIAN ARTERY BYPASS Advance Directives For more information, please contact: [phone] * Full Code (Latest Code Status on File) Date Activated Date Inactivated Comments 12/07/2023 6:46 AM 12/08/2023 3:20 PM Care Teams Predictive Maintenance Technician Relationship Specialty Start Date End Date Melvin Alanis [address] [place] [address] PCP - General 09/05/24
--- OUTSIDE RECORDS SUMMARY | 2025-01-10 10:37 | XMS_ITS | Referral Summary ---
Author Organization [employer] ([place], [place], [place], [place]) Address [address] [place] [address] Care Team Providers Care Er Rn Name Role Phone Melvin Alanis Primary Care Provider [phone] Allergies Active Allergy Reactions Criticality Noted Date [...] drink = 0.6 oz pur e alcohol) [facility] - Mental Health Answer Date Recorde d [...] Do you speak a language other than [place] at ho oh? No 12/07/2023 Do you want help with [...] 09/05/2024 1:59 PM EDT Plan of Treatment Not on file Medical Devices Implanted Type Area Flight Crew Ordnanceman Device Identifier Shelf Expiration Date Model / Serial / Lot [place] Wvn Plat [id number] - [id number] Implanted:Qty : 1 on 12/07/2023 by Raghu Saldana DO at [facility] IMPLANTS Right: Arterial GETINGE [id number] 03/22/2028 [id number] / [id number] Description:RIGHT CAROTID TO SUBCLAVIAN ARTERY BYPASS Advance Directives For more information, please contact: [phone] * Full Code (Latest Code Status on File) Date Activated Date Inactivated Comments 12/07/2023 6:46 AM 12/08/2023 3:20 PM Care Teams Er Rn Relationship Specialty Start Date End Date Melvin Alanis [address] [place] [address] PCP - General 09/05/24
== END 2025-01-10 23:59 | disposition home or self-care (01) ==
LOC: RAD 10:35
PROVIDERS: PCP Nurse Practitioner Family; Visit Provider Nurse Practitioner Family
DX: R93.422 Abnormal radiologic findings on diagnostic imaging of left kidney (principal); R93.421 Abnormal radiologic findings on diagnostic imaging of right kidney; R79.89 Other specified abnormal findings of blood chemistry
CPT/HCPCS: 76770